=== PATIENT | female | born 1965 | race Caucasian/White ===

== ENCOUNTER 2018-01-16 19:48 | Emergency (ER) | payer MEDICAID ==
[2018-01-16 19:55] VITALS: BP 154/116
[2018-01-16] MEDS ORDERED: ACETAMINOPHEN 325 MG TABLET PO ONE (21:27)
--- NOTE | 2018-01-16 22:03 | RADIOLOGY REPORT (SQ) ---
EXAM DESCRIPTION: HAND LEFT 3 VIEWS COMPLETED DATE/TIME: 01/16/2018 9:47 pm REASON FOR STUDY: fish hook in it COMPARISON: None. EXAM PARAMETERS: NUMBER OF VIEWS: Three views. TECHNIQUE: AP, lateral and oblique radiographic images acquired of the left hand. LIMITATIONS: None. FINDINGS: MINERALIZATION: Normal. BONES: No acute fracture or dislocation. No worrisome bone lesions. JOINTS: No effusions. SOFT TISSUES: There is a fishhook in the soft tissues of the distal aspect of the 2nd digit. This do es not appear to involve the bone. OTHER: No other significant finding. IMPRESSION: Fish hook in the soft tissues as described. TECHNICAL DOCUMENTATION: JOB ID: [id number] [employer] [place]- All Rights Reserved Reading location - IP/workstation name: [email or web address]
[2018-01-16] MEDS ORDERED: DIPH/PERTUSS(ACELL)/TETANUS VAC/PF 0.5 ML SYR (>=10YO) IM ONE (22:24)
[2018-01-16] MEDS ORDERED: OXYCODONE-ACETAMINOPHEN 5-325 MG TABLET PO ONE (22:24)
--- NOTE | 2018-01-16 22:25 | ER Document Report ---
ED Medical Screen (RME) - General Chief Complaint: Foreign Body Stated Complaint: FINGER INJURY Time Seen by Provider: 01/16/18 22:24 Mode of Arrival: Ambulatory Information source: Patient Notes: 52-year-old female presents to ED for it with a fishhook in her left index finger. She states that the stroke was in the laundry and when she reached in her hand into the laundry the patient went into the end of her index finger. She states her tetanus shot is not up-to-date and the pain is severe in her finger. It is a fisherman lower with multiple hooks the other hooks have been taped together. I have greeted and performed a rapid initial assessment of this patient. A comprehensive ED assessment and evaluation of the patient, analysis of test results and completion of medical decision making process will be conducted by an additional ED providers. TRAVEL OUTSIDE OF THE [place] IN LAST 30 DAYS: No - Related Data Allergies/Adverse Reactions: iodine [Iodine] Allergy (Verified 08/15/13 09:39) paroxetine HCl [From Paxil] Allergy (Verified 08/15/13 09:39) Penicillins Allergy (Verified 08/15/13 09:39) Past Medical History - Past Medical History Cardiac Medical History: Reports: Hx Hypertension Neurological Medical History: Reports: Hx Migraine Endocrine Medical History: Reports: Hx Diabetes Mellitus Type 2 Renal/ Medical History: Denies: Hx Peritoneal Dialysis Psychiatric Medical History: Reports: Hx Attention Deficit Hyperactivity Disorder Traumatic Medical History: Reports: Hx Fractures Infectious Medical History: Denies: Hx MRSA Past Surgical History: Reports: Hx Hysterectomy, Hx Orthopedic Surgery - Immunizations Hx Diphtheria, Pertussis, Tetanus Vaccination: Yes Physical Exam - Vital signs Vitals: Temp Pulse Resp BP Pulse Ox 98.3 F 109 H 20 154/116 H 99 01/16/18 19:54 01/16/18 19:54 01/16/18 19:54 01/16/18 19:54 01/16/18 19:54 Course - Vital Signs Vital signs: Temp Pulse Resp BP Pulse Ox 98.3 F 109 H 20 154/116 H 99 01/16/18 19:54 01/16/18 19:54 01/16/18 19:54 01/16/18 19:54 01/16/18 19:54
[2018-01-16] MEDS ORDERED: LIDOCAINE 1% INJ-PF (10 MG/ML) 30 ML SDV INJ ONE (23:15)
[2018-01-16] MEDS ORDERED: BUPIVACAINE HCL 0.5 % INJ/PF 30 ML SDV INJ ONE (23:16)
--- NOTE | 2018-01-16 23:16 | ER Document Report ---
ED Foreign Body - General Chief Complaint: Foreign Body Stated Complaint: FINGER INJURY Time Seen by Provider: 01/16/18 22:24 Mode of Arrival: Ambulatory Notes: Patient is a 52-year-old female that comes emergency department for chief complaint of fishhook embedded in her left index finger. She states that she found the lure caught in her favorite shirt and when she tried to remove it from her shirt she got the hook buried in her finger. She states her son tried to remove the hook for 1 hour before she came to the emergency department. She denies any other complaints. She is not a diabetic. She is not on a blood thinner. She is not up-to-date on her tetanus within 5 years. Fishing lure was recently used in brackish water. TRAVEL OUTSIDE OF THE [place] IN LAST 30 DAYS: No - Related Data Allergies/Adverse Reactions: iodine [Iodine] Allergy (Verified 08/15/13 09:39) paroxetine HCl [From Paxil] Allergy (Verified 08/15/13 09:39) Penicillins Allergy (Verified 08/15/13 09:39) Past Medical History - General Information source: Patient - Social History Smoking Status: Never Smoker Drug Abuse: None Lives with: Family Family History: None, Other Patient has suicidal ideation: No Patient has homicidal ideation: No - Past Medical History Cardiac Medical History: Reports: Hx Hypertension Neurological Medical History: Reports: Hx Migraine Endocrine Medical History: Reports: Hx Diabetes Mellitus Type 2 Renal/ Medical History: Denies: Hx Peritoneal Dialysis Psychiatric Medical History: Reports: Hx Attention Deficit Hyperactivity Disorder Traumatic Medical History: Reports: Hx Fractures Infectious Medical History: Denies: Hx MRSA Past Surgical History: Reports: Hx Hysterectomy, Hx Orthopedic Surgery - Immunizations Hx Diphtheria, Pertussis, Tetanus Vaccination: Yes Hx Pneumococcal Vaccination: 08/20/13 Review of Systems - Review of Systems Constitutional: No symptoms reported EENT: No symptoms reported Cardiovascular: No symptoms reported Respiratory: No symptoms reported Gastrointestinal: No symptoms reported Genitourinary: No symptoms reported Female Genitourinary: No symptoms reported Musculoskeletal: See HPI Skin: See HPI Hematologic/Lymphatic: No symptoms reported Neurological/Psychological: No symptoms reported Physical Exam - Vital signs Vitals: Temp Pulse Resp BP Pulse Ox 98.3 F 109 H 20 154/116 H 99 01/16/18 19:54 01/16/18 19:54 01/16/18 19:54 01/16/18 19:54 01/16/18 19:54 Interpretation: Normal - General General appearance: Anxious In distress: None - HEENT Head: Normocephalic, Atraumatic Eyes: Normal Pupils: PERRL - Respiratory Respiratory status: No respiratory distress Chest status: Nontender Breath sounds: Normal Chest palpation: Normal - Cardiovascular Rhythm: Regular Heart sounds: Normal auscultation Murmur: No - Abdominal Inspection: Normal Distension: No distension Bowel sounds: Normal Tenderness: Nontender Organomegaly: No organomegaly - Back Back: Normal, Nontender - Extremities General upper extremity: Other - There is a 3 prong fish hook with a single prong embedded in the finger pad of the left index finger. There is capillary refill and sensation are both normal. Range of motion of the fingers normal. Normal exam otherwise. General lower extremity: Normal inspection, Nontender, Normal ROM, Normal strength, Normal temperature - Neurological Neuro grossly intact: Yes Cognition: Normal Orientation: AAOx4 Amor Coma Scale Eye Opening: Spontaneous [place] Coma Scale Verbal: Oriented Amor Coma Scale Motor: Obeys Commands Amor Coma Scale Total: 15 Speech: Normal Motor strength normal: LUE, RUE, LLE, RLE Sensory: Normal - Psychological Associated symptoms: Normal affect, Normal mood - Skin Skin Temperature: Warm Skin Moisture: Dry Skin Color: Normal Course - Re-evaluation Re-evalutation: X-ray shows fishhook embedded in soft tissue but no bony involvement. [place] was removed after digital block was performed without any difficulty, wound was dressed after thorough cleaning, patient was placed on doxycycline prophylaxis, tetanus was updated. Discussed wound care and return precautions. Patient states understanding and agreement. - Vital Signs Vital signs: Temp Pulse Resp BP Pulse Ox 98.3 F 109 H 20 154/116 H 99 01/16/18 19:54 01/16/18 19:54 01/16/18 19:54 01/16/18 19:54 01/16/18 19:54 Procedures - Additional Procedures Foreign body removal Notes: Digital block was performed after cleaning the finger using 4 mL's of 1% Xylocaine and 4 mL's of 0.5% bupivacaine. Excellent anesthesia obtained. Because of the buried nature of the hook I was unable to advance it back out, instead a small incision had to be made with a scalpel along the side of the hook to get next to the prong, after which it was easy to grasp the hook with needle drivers and remove the hook in a single tug. Minimal bleeding. No deep wound on exploration. Area cleaned thoroughly and dressed with antibiotic dressing. Discharge - Discharge Clinical Impression: Fish hook injury of finger of left hand Qualifiers: Encounter type: initial encounter Qualified Code(s): S69.92XA - Unspecified injury of left wrist, hand and finger(s), initial encounter Condition: Stable Disposition: HOME, SELF-CARE Additional Instructions: [place] has been removed completely, keep your hand/finger clean with soap and water, apply topical antibiotic over the finger, take the doxycycline antibiotic to prevent infection. Return immediately if this develops redness, swelling, discolored discharge, if you develop fever, or for any other concerns or worsening symptoms. Prescriptions: Doxycycline Hyclate 100 mg PO BID #10 capsule Forms: Return to Work Referrals: ALFONSO HERNANDEZ MD [Primary Care Provider] - Follow up as needed
[2018-01-17] MEDS ORDERED: HYDROCODONE/ACETAMINOPHEN 5-325 MG (6 TAB/ER DISP) PO PRN (00:26)
[2018-01-17] MEDS ORDERED: DOXYCYCLINE HYCLATE 100 MG TABLET PO ONE (00:26)
[2018-01-17] MEDS ORDERED: ONDANSETRON 4 MG TAB.RAPDIS PO ONE (00:27)
== END 2018-01-17 01:22 | disposition home or self-care (01) ==
LOC: ER 19:48
PROC: 0JCK0ZZ Extirpation of Matter from Left Hand Subcutaneous Tissue and Fascia, Open Approach (ICD-10-PCS; principal; 2018-01-16)
DX: S61.241A Puncture wound with foreign body of left index finger without damage to nail, initial encounter (principal); W45.8XXA Other foreign body or object entering through skin, initial encounter; Y93.89 Activity, other specified; I10 Essential (primary) hypertension; E11.9 Type 2 diabetes mellitus without complications
CPT/HCPCS: 99283; 90471; 73130; 90715; 20103; J3490 ×4; S0119

== ENCOUNTER 2018-01-19 09:45 | Emergency (ER) | payer MEDICAID ==
--- NOTE | 2018-01-19 10:03 | ER Document Report ---
ED General - General Chief Complaint: Fall Stated Complaint: FALL/ WRIST AND ANKLE PAIN Time Seen by Provider: 01/19/18 10:01 Mode of Arrival: Ambulatory Information source: Patient Notes: Patient is a 52-year-old female who presents with right wrist pain and left ankle pain and right knee abrasion occurred last night after she fell. She states she tripped and fell over her dog's. She states her right knee does not hurt her but she is concerned she broke her left ankle. She was also seen here yesterday for a fishhook injury and given hydrocodone which she has been taking , last dose was last night. Endorses some associated swelling but denies any bruising or deformity. She denies any head injury or loss of consciousness. TRAVEL OUTSIDE OF THE [place] IN LAST 30 DAYS: No - Related Data Allergies/Adverse Reactions: iodine [Iodine] Allergy (Verified 01/19/18 09:47) paroxetine HCl [From Paxil] Allergy (Verified 01/19/18 09:47) Penicillins Allergy (Verified 01/19/18 09:47) Past Medical History - General Information source: Patient - Social History Smoking Status: Current Every Day Smoker Family History: None, Other - Past Medical History Cardiac Medical History: Reports: Hx Hypertension Neurological Medical History: Reports: Hx Migraine Endocrine Medical History: Reports: Hx Diabetes Mellitus Type 2 Renal/ Medical History: Denies: Hx Peritoneal Dialysis Psychiatric Medical History: Reports: Hx Attention Deficit Hyperactivity Disorder Traumatic Medical History: Reports: Hx Fractures Infectious Medical History: Denies: Hx MRSA Past Surgical History: Reports: Hx Hysterectomy, Hx Orthopedic Surgery - Immunizations Hx Diphtheria, Pertussis, Tetanus Vaccination: Yes Hx Pneumococcal Vaccination: 08/20/13 Review of Systems - Review of Systems Constitutional: No symptoms reported EENT: No symptoms reported Cardiovascular: No symptoms reported Respiratory: No symptoms reported Gastrointestinal: No symptoms reported Genitourinary: No symptoms reported Female Genitourinary: No symptoms reported Musculoskeletal: See HPI Skin: No symptoms reported Hematologic/Lymphatic: No symptoms reported Neurological/Psychological: No symptoms reported Physical Exam - Vital signs Vitals: Temp Pulse Resp BP Pulse Ox 98.4 F 106 H 20 130/87 H 98 01/19/18 09:50 01/19/18 09:50 01/19/18 09:50 01/19/18 09:50 01/19/18 09:50 - Notes Notes: PHYSICAL EXAM: CONSTITUTIONAL: Alert and oriented, well-appearing and in no acute distress. HENT: Normocephalic, atraumatic. Trachea midline. Uvula midline. Moist mucous membranes. EYES: Pupils equal round and reactive to light, EOM intact. Sclera anicteric, conjunctiva are normal. No entrapment. NECK: supple without lymphadenopathy. No midline tenderness or paraspinous muscle spasms. No step-offs or deformities. ROM intact. Negative Kernig's and negative Brudzinski's. HEART: Regular rate and rhythm without murmurs. LUNGS: CTAB and equal. No wheezes, rales or rhonchi. GI: Normactive bowel sounds. Abdomen is soft, nontender, non-distended. No organomegaly. no CVAT. No rebound or guarding. BACK: FROM to passive/active. Strength 5+/5. No vertebral point tenderness, step -offs, or deformities. No other bony tenderness, erythema, swelling or ecchymosis. No paraspinous muscle spasms. EXTREMITIES: bony tenderness along dorsal aspect of ankle without erythema, edema, ecchymosis or deformity. Mild TTP to right wrist without edema, erythema , deformity or ecchymosis. Normal range of motion to right wrist, limited ROM to left ankle, no pitting edema. No cyanosis. Cap Refill <3 seconds. NEURO: Cranial nerves grossly intact. Normal sensory/motor exams. PSYCH: Normal mood, normal affect. SKIN: Warm and dry. Normal turgor. No rashes or lesions noted. Abrasions to right knee. Course - Re-evaluation Re-evalutation: 01/19/18 10:03 Patient seen and examined. No obvious deformities. Neurovascular intact. Abrasions noted to right knee but denies pain at the site. Will obtain xrays. 01/19/18 10:55 Reviewed images and results from radiology - negative right wrist for fracture/ dislocation, left ankle negative for fracture/dislocation. Discussed results with patient. She was given hydrocodone last night following fish hook injury - recommend that she can continue those medications, won't supply any additional pain medication. Will provide CHA wrap and crutches for ankle sprain and wrist splint for wrist sprain. Recommended to follow-up with orthopedics. At this time, will discharge with return precautions and follow-up recommendations. Verbal discharge instructions given at the bedside and opportunity for questions given. Medication warnings reviewed. Patient is in agreement with this plan and has verbalized understanding of return precautions and the need for primary care follow-up in the next 24-72 hours. - Vital Signs Vital signs: Temp Pulse Resp BP Pulse Ox 98.3 F 94 18 117/80 98 01/19/18 11:04 01/19/18 11:04 01/19/18 11:04 01/19/18 11:04 01/19/18 11:04 - Diagnostic Test Radiology reviewed: Image reviewed, Reports reviewed Discharge - Discharge Clinical Impression: Fall, accidental Qualifiers: Encounter type: initial encounter Qualified Code(s): W19.XXXA - Unspecified fall, initial encounter Right wrist sprain Qualifiers: Encounter type: initial encounter Qualified Code(s): S63.501A - Unspecified sprain of right wrist, initial encounter Left ankle sprain Qualifiers: Encounter type: initial encounter Involved ligament of ankle: other ligament Qualified Code(s): S93.492A - Sprain of other ligament of left ankle, initial encounter Condition: Stable Disposition: HOME, SELF-CARE Instructions: Ice Packs ([facility]), Sprained Ankle ([facility]), Wrist Sprain ([facility]) Prescriptions: Naproxen [Naprosyn 250 mg Tablet] 250 mg PO DAILY PRN #14 tablet PRN Reason: Forms: Elevated Blood Pressure, Return to School, Return to Work
--- NOTE | 2018-01-19 10:45 | RADIOLOGY REPORT (SQ) ---
EXAM DESCRIPTION: ANKLE LEFT COMPLETE COMPLETED DATE/TIME: 01/19/2018 10:26 am REASON FOR STUDY: s/p fall COMPARISON: None. NUMBER OF VIEWS: Three views. TECHNIQUE: AP, lateral, and oblique radiographic images acquired of the left ankle. LIMITATIONS: None. FINDINGS: MINERALIZATION: Normal. BONES: No acute fracture or dislocation. No worrisome bone lesions. JOINTS: No effusions. SOFT TISSUES: No soft tissue swelling. No foreign body. OTHER: No other significant finding. IMPRESSION: NEGATIVE STUDY OF THE LEFT ANKLE. NO RADIOGRAPHIC EVIDENCE OF ACUTE INJURY. TECHNICAL DOCUMENTATION: JOB ID: [id number] [employer]- All Rights Reserved Reading location - IP/workstation name: [email or web address]
--- NOTE | 2018-01-19 10:52 | RADIOLOGY REPORT (SQ) ---
EXAM DESCRIPTION: WRIST RIGHT 3 VIEWS COMPLETED DATE/TIME: 01/19/2018 10:26 am REASON FOR STUDY: s/p fall COMPARISON: None. NUMBER OF VIEWS: Three views. TECHNIQUE: AP, lateral, and oblique radiographic images acquired of the right wrist. LIMITATIONS: None. FINDINGS: MINERALIZATION: Normal. BONES: No acute fracture or dislocation. No worrisome bone lesions. Normal alignment. SOFT TISSUES: No soft tissue swelling. No foreign body. OTHER: No other significant finding. IMPRESSION: NEGATIVE STUDY OF THE RIGHT WRIST. NO RADIOGRAPHIC EVIDENCE OF ACUTE INJURY. TECHNICAL DOCUMENTATION: JOB ID: [id number] [employer]- All Rights Reserved Reading location - IP/workstation name: [email or web address]
[2018-01-19 11:21] VITALS: BP 117/80
== END 2018-01-19 11:18 | disposition home or self-care (01) ==
LOC: ER 09:45
DX: S63.501A Unspecified sprain of right wrist, initial encounter (principal); S93.402A Sprain of unspecified ligament of left ankle, initial encounter; S80.211A Abrasion, right knee, initial encounter; W01.0XXA Fall on same level from slipping, tripping and stumbling without subsequent striking against object, initial encounter; I10 Essential (primary) hypertension; E11.9 Type 2 diabetes mellitus without complications; F17.200 Nicotine dependence, unspecified, uncomplicated; Z88.8 Allergy status to other drugs, medicaments and biological substances; Z88.0 Allergy status to penicillin
CPT/HCPCS: 99283; 73610; 73110; L3908

== ENCOUNTER 2018-05-10 04:31 | Emergency (ER) | payer MEDICAID ==
[2018-05-10] MEDS ORDERED: KETOROLAC TROMETHAMINE INJ/PF 30 MG/1 ML SDV IV ONE (05:05)
[2018-05-10] MEDS ORDERED: ONDANSETRON HCL INJ/PF 4 MG/2 ML SDV IV ONE (05:05)
[2018-05-10 05:47] LABS: ABSOLUTE BASOPHILS # (AUTO) 0.1 10^3/uL (0.0-0.2); ABSOLUTE EOSINOPHILS # (AUTO) 0.2 10^3/uL (0.0-0.6); ABSOLUTE LYMPHOCYTES (AUTO) 2.7 10^3/uL (0.5-4.7); ABSOLUTE MONOCYTES (AUTO) 0.7 10^3/uL (0.1-1.4); ABSOLUTE NEUT (AUTO) 6.5 10^3/uL (1.7-8.2); BASOPHILS % (AUTO) 0.8 % (0-2); HEMATOCRIT 40.7 % (36.0-47.0); HEMOGLOBIN 13.9 g/dL (12.0-15.5); LYMPHOCYTES % (AUTO) 26.3 % (13-45); MEAN CORPUSCULAR HGB CONC 34.3 g/dL (32.0-36.0); MEAN CORPUSCULAR VOLUME 90 fl (80-97); MONOCYTES % (AUTO) 7.1 % (3-13); PLATELET COUNT 369 10^3/uL (150-450); RED CELL DISTRIBUTION WIDTH 13.3 % (11.5-14.0); SEGMENTED NEUTROPHILS % (AUTO) 63.8 % (42-78); TOTAL CELLS COUNTED % (AUTO) 100 %; WHITE BLOOD COUNT 10.2 10^3/uL (4.0-10.5)
[2018-05-10 06:02] LABS: ALANINE AMINOTRANSFERASE 26 U/L (9-52); ALBUMIN 3.7 g/dL (3.5-5.0); ALKALINE PHOSPHATASE 74 U/L (38-126); ANION GAP 12 (5-19); ASPARTATE AMINO TRANSFERASE 19 U/L (14-36); BILIRUBIN,DIRECT 0.2 mg/dL (0.0-0.4); BILIRUBIN,TOTAL 0.3 mg/dL (0.2-1.3); BLOOD UREA NITROGEN 16 mg/dL (7-20); CALCIUM 9.1 mg/dL (8.4-10.2); CARBON DIOXIDE 23 mmol/L (22-30); CHLORIDE 105 mmol/L (98-107); GLUCOSE 107 mg/dL (75-110); LIPASE 122.1 U/L (23-300); POTASSIUM 4.3 mmol/L (3.6-5.0); SODIUM 140.1 mmol/L (137-145); TOTAL PROTEIN 6.5 g/dL (6.3-8.2)
[2018-05-10] MEDS ORDERED: NORMAL SALINE 1000 ML 1,000 ML IV ONE (06:23)
[2018-05-10] MEDS ORDERED: FENTANYL CITRATE INJ/PF 100 MCG/2 ML AMPUL IV ONE (06:24)
[2018-05-10] MEDS ORDERED: METOCLOPRAMIDE HCL INJ/PF 10 MG/2 ML SDV IV ONE (06:24)
--- NOTE | 2018-05-10 06:24 | ER Document Report ---
ED GI/ <GREGG XIAO - Last Filed: 05/10/18 08:36> - General Mode of Arrival: Ambulatory Information source: Patient TRAVEL OUTSIDE OF THE [place] IN LAST 30 DAYS: No <BERLIN PAGAN - Last Filed: 05/10/18 14:57> - General Chief Complaint: Flank Pain Stated Complaint: FLANK PAIN Time Seen by Provider: 05/10/18 06:10 Notes: 52-year-old female presenting to the emergency department today with complaints of left-sided abdominal pain. Patient states it woke her up out of her sleep this morning. Patient has a history of kidney stones. Patient mentions that she had a fall at 10:00 in the morning yesterday and she is unsure if it is related to her pain now. Patient states she has nausea but denies vomiting. ( BERLIN PAGAN) - Related Data Allergies/Adverse Reactions: iodine [Iodine] Allergy (Verified 05/10/18 08:11) paroxetine HCl [From Paxil] Allergy (Verified 05/10/18 08:11) Penicillins Allergy (Verified 05/10/18 08:11) Past Medical History - General Information source: Patient - Social History Smoking Status: Never Smoker Cigarette use (# per day): No Frequency of alcohol use: None Drug Abuse: None Lives with: Family Family History: Reviewed & Not Pertinent, Other Patient has suicidal ideation: No Patient has homicidal ideation: No - Past Medical History Cardiac Medical History: Reports: Hx Hypertension Neurological Medical History: Reports: Hx Migraine Endocrine Medical History: Reports: Hx Diabetes Mellitus Type 2 Psychiatric Medical History: Reports: Hx Attention Deficit Hyperactivity Disorder Traumatic Medical History: Reports: Hx Fractures Past Surgical History: Reports: Hx Hysterectomy, Hx Orthopedic Surgery - Immunizations Hx Diphtheria, Pertussis, Tetanus Vaccination: Yes Hx Pneumococcal Vaccination: 08/20/13 <BERLIN PAGAN - Last Filed: 05/10/18 14:57> Review of Systems - Review of Systems Constitutional: No symptoms reported EENT: No symptoms reported Cardiovascular: No symptoms reported Respiratory: No symptoms reported Gastrointestinal: See HPI, Abdominal pain, Nausea Genitourinary: No symptoms reported Female Genitourinary: No symptoms reported Musculoskeletal: No symptoms reported Skin: No symptoms reported Hematologic/Lymphatic: No symptoms reported Neurological/Psychological: No symptoms reported -: Yes All other systems reviewed and negative <BERLIN PAGAN - Last Filed: 05/10/18 14:57> Physical Exam <GREGG XIAO - Last Filed: 05/10/18 08:36> <BERLIN PAGAN - Last Filed: 05/10/18 14:57> - Vital signs Vitals: Temp Pulse Resp BP Pulse Ox 97.4 F 80 22 H 127/96 H 100 05/10/18 04:42 05/10/18 04:42 05/10/18 04:42 05/10/18 04:42 05/10/18 04:42 - Notes Notes: Physical Exam: General: Alert, appears uncomfortable. HEENT: Normocephalic. Atraumatic. PERRL. Extraocular movements intact. Oropharynx clear. Neck: Supple. Non-tender. Respiratory: No respiratory distress. Clear and equal breath sounds bilaterally. Cardiovascular: Regular rate and rhythm. Abdominal: Obese. Left lower quadrant tenderness with palpation. No distension. Normal Bowel Sounds. Back: Non-tender, no CVA tenderness with percussion. No deformity or step off. Extremities: Moves all four extremities. Upper extremities: Normal inspection. Normal ROM. Lower extremities: Normal inspection. No edema. Normal ROM. Neurological: Normal cognition. AAOx4. Normal speech. Psychological: Normal affect. Normal Mood. Skin: Warm. Dry. Normal color. (BERLIN PAGAN) Course - Laboratory Result Diagrams: 05/10/18 05:20 05/10/18 05:20 - Diagnostic Test Radiology reviewed: Image reviewed, Reports reviewed - 6 mm stone in the mid left ureter with moderate hydroureter and hydronephrosis <GREGG XIAO - Last Filed: 05/10/18 08:36> - Laboratory Result Diagrams: 05/10/18 05:20 05/10/18 05:20 <BERLIN PAGAN - Last Filed: 05/10/18 14:57> - Vital Signs Vital signs: Temp Pulse Resp BP Pulse Ox 97.5 F 93 20 119/69 95 05/10/18 08:50 05/10/18 08:50 05/10/18 08:50 05/10/18 08:50 05/10/18 08:50 - Laboratory Laboratory results interpreted by me: 05/10/18 07:55 Urine Blood MODERATE H Discharge <GREGG XIAO - Last Filed: 05/10/18 08:36> <BERLIN PAGAN - Last Filed: 05/10/18 14:57> - Discharge Clinical Impression: Kidney stone on left side Condition: Stable Disposition: HOME, SELF-CARE Additional Instructions: Kidney Stone: You are passing a kidney stone. These stones are usually due to increased calcium or uric acid concentrations in your urine. Stones within the kidney itself are not painful. The pain occurs as the stone leaves the kidney to pass down the long tube, called the ureter, leading to the bladder. If the stone is small, it will usually pass by itself. Most patients can pass the stone at home. You will usually receive medications for pain, nausea or vomiting, and sometimes a medication to assist in passing the kidney stone. However, if the pain is very severe or if vomiting prevents you from taking oral pain medications, you may need to return for further treatment. Drink three or four quarts of fluids per day. You will be given pain medication (if needed) and urine strainers. Strain all your urine to see if the stone passes. If your doctor has asked you to bring the stone in for analysis, return with the stone once it has passed. Return if pain or vomiting become severe, if you develop a high fever, if you are unable to pass your urine, or if other unusual symptoms occur. Take medications as prescribed. Drink plenty of fluids. Follow-up with a local urologist. Call today for an appointment. RETURN TO THE EMERGENCY ROOM IF ANY NEW OR WORSENING SYMPTOMS. Prescriptions: Hydromorphone HCl [Dilaudid 2 mg Tablet] 2 mg PO ASDIR PRN #20 tablet PRN Reason: For Pain Indomethacin [Indocin 25 mg Capsule] 25 mg PO Q8 #15 capsule Tamsulosin HCl [Flomax 0.4 mg Cap.sr] 0.4 mg PO DAILY #7 cap.sr.24h Referrals: [facility] [Provider Group] - Follow up in 3-5 days [facility] [Provider Group] - Follow up in 3-5 days Scribe Attestation: 05/10/18 08:24 I personally performed the services described in the documentation, reviewed and edited the documentation which was dictated to the scribe in my presence, and it accurately records my words and actions. (GREGG XIAO) Scribe Documentation - Scribe Written by Justin:: Justin Woods, 05/10/2018, 0728 acting as scribe for :: Param <BERLIN PAGAN - Last Filed: 05/10/18 14:57>
[2018-05-10] MEDS ORDERED: HYDROMORPHONE HCL INJ/PF 2 MG/ML AMPULE IV ONE (08:08)
--- NOTE | 2018-05-10 08:09 | RADIOLOGY REPORT (SQ) ---
EXAM DESCRIPTION: CT LTD RENAL STONE PROTOCOL ON COMPLETED DATE/TIME: 05/10/2018 7:47 am REASON FOR STUDY: L flank pain LLQ abdominal pain COMPARISON: CT abdomen pelvis 08/15/2013 TECHNIQUE: CT scan of the abdomen and pelvis performed without intravenous or oral contrast. Images reviewed with lung, soft tissue, and bone windows. Reconstructed coronal and sagittal MPR images revi ewed. All images stored on PACS. All CT scanners at this facility use dose modulation, iterative reconstruction, and/or weight based d osing when appropriate to reduce radiation dose to as low as reasonably achievable (ALARA). [facility]: Dose Right [facility]: CareDose [facility]: Dose Right [facility]: Teradose 4D [facility]: Smart Technologies RADIATION DOSE: CT Rad equipment meets quality standard of care and radiation dose reduction techniq ues were employed. CTDIvol: 10.9 mGy. DLP: 573 mGy-cm.mGy. LIMITATIONS: None. FINDINGS: A 6 mm stone is present in the left mid 3rd ureter at the level of the left L4 transverse process. Stone is 700 Hounsfield units and causes moderate left hydronephrosis and upper hydroureter . Elsewhere in the left kidney, a 2 mm lower pole intrarenal nonobstructive stone is present. No left renal cysts or masses. LOWER CHEST: Small hiatal hernia. NON-CONTRASTED LIVER, SPLEEN, ADRENALS: Non contrasted liver, spleen, and left adrenal gland are unre markable. A fat density 1.8 cm right adrenal adenoma is present, benign. PANCREAS: No masses. No peripancreatic inflammatory changes. GALLBLADDER: No identified stones by CT criteria. No inflammatory changes to suggest cholecystitis. RIGHT KIDNEY AND URETER: No suspicious masses. Assessment limited by lack of IV contrast. No signif icant calcifications. No hydronephrosis or hydroureter. LEFT KIDNEY AND URETER: As above AORTA AND RETROPERITONEUM: No aneurysm. No retroperitoneal masses or adenopathy. BOWEL AND PERITONEAL CAVITY: No obvious masses or inflammatory changes. No free fluid. APPENDIX: Surgically absent PELVIS, BLADDER, AND ABDOMINAL WALL:No abnormal masses. No free fluid. Bladder normal. Post hysterec fariha BONES: No significant findings. OTHER: No other significant finding. IMPRESSION: 6 mm stone in the left mid 3rd ureter at the level of the left L4 transverse process cau sing moderate left hydronephrosis and upper hydroureter COMMENT: Quality ID # [id number]: Final reports with documentation of one or more dose reduction techniques (e.g., Automated exposure control, adjustment of the mA and/or kV according to patient size, use of iterative reconstruction technique) TECHNICAL DOCUMENTATION: JOB ID: [id number] [employer]- All Rights Reserved Reading location - IP/workstation name: [email or web address] BY [facility]
[2018-05-10 08:18] LABS: APPEARANCE,URINE CLEAR; BILIRUBIN,URINE NEGATIVE (NEGATIVE); COLOR,URINE YELLOW; GLUCOSE, URINE NEGATIVE (NEGATIVE); KETONES,URINE NEGATIVE (NEGATIVE); LEUKOCYTE ESTERASE,URINE NEGATIVE (NEGATIVE); NITRITE,URINE NEGATIVE (NEGATIVE); PROTEIN,URINE NEGATIVE (NEGATIVE); URINE SPECIFIC GRAVITY 1.018; UROBILINOGEN,URINE NEGATIVE mg/dL (<2.0)
[2018-05-10 08:56] VITALS: BP 119/69
== END 2018-05-10 09:30 | disposition home or self-care (01) ==
LOC: ER 04:31
DX: N20.0 Calculus of kidney (principal); R10.9 Unspecified abdominal pain; W19.XXXA Unspecified fall, initial encounter; E11.9 Type 2 diabetes mellitus without complications; I10 Essential (primary) hypertension; Z87.442 Personal history of urinary calculi; Z90.710 Acquired absence of both cervix and uterus
CPT/HCPCS: 99284; 96361; 96374; 96375; 36415; 83690; 85025; 80053; 81001; 76380; J3010; J1885; J2765; J1170; J7030

== ENCOUNTER → 2018-05-31 | Outpatient (CLI) | payer MEDICAID ==
--- NOTE | 2018-05-31 13:20 | RADIOLOGY REPORT (SQ) ---
EXAM DESCRIPTION: UGI SERIES COMPLETED DATE/TIME: 05/31/2018 9:28 am REASON FOR STUDY: R13.10 DYSPHAGIA, UNSPECIFIED R13.10 DYSPHAGIA, UNSPECIFIED Z12.31 ENCNTR SCREEN MAMMOGRAM FOR MALIGNANT NEOPLASM OF FOX COMPARISON: None. TECHNIQUE: Under fluoroscopic guidance, patient ingested effervescent granules followed by thick and thin barium. Fluoroscopic spot images and routine radiographic images acquired and stored on PACS. 12 MM BARIUM TABLET GIVEN: Yes. No significant delay in passage. LIMITATIONS: None. FLUOROSCOPY TIME: FLUORO TIME: 2 minutes 25 seconds 20 digital series of images saved to PACS. FINDINGS: NEUROMUSCULAR COORDINATION OF SWALLOW: Normal. No aspiration. ESOPHAGEAL MOTILITY: Normal peristalsis. No esophageal spasm. ESOPHAGEAL MUCOSA: Normal mucosa without masses or ulceration. GASTRO-ESOPHAGEAL JUNCTION: Tiny hiatal hernia with mild gastroesophageal reflux. No distal esophage al stricture. The distal esophageal mucosal abnormalities. STOMACH: Normal without masses or ulcerations. GASTRIC OUTLET: No delay in emptying. Normal pylorus. DUODENAL BULB: Normal distention. No spasm or ulceration. DUODENUM: Mucosa normal. No extrinsic masses or malrotation. PROXIMAL SMALL BOWEL: Mucosa normal. No extrinsic masses or malrotation. NON-GI TRACT STRUCTURES: No significant finding. OTHER: No other significant finding. IMPRESSION: Tiny hiatal hernia with mild gastroesophageal reflux. Otherwise unremarkable upper GI s tudy. COMMENT: Quality ID 145: Final reports for procedures using fluoroscopy that document radiation exp osure indices, or exposure time and number of fluorographic images (if radiation exposure indices are not available) TECHNICAL DOCUMENTATION: JOB ID: [id number] [employer]- All Rights Reserved Reading location - IP/workstation name: [facility]
--- NOTE | 2018-05-31 16:53 | WOMENS IMAGING REPORT ---
EXAM DESCRIPTION: BILAT SCREENING MAMMO W/CAD COMPLETED DATE/TIME: 05/31/2018 10:45 am REASON FOR STUDY: BILATERAL SCREENING MAMMO/Z12.31 R13.10 DYSPHAGIA, UNSPECIFIED Z12.31 ENCNTR SCR EEN MAMMOGRAM FOR MALIGNANT NEOPLASM OF FOX COMPARISON: 2011 TECHNIQUE: Standard craniocaudal and mediolateral oblique views of each breast recorded using digita l acquisition. LIMITATIONS: None. FINDINGS: No masses, calcifications or architectural distortion. No areas of suspicion. Read with the assistance of CAD. .[facility] - R2 Cenova Version 1.3 .[facility] - R2 Cenova Version 1.3 .[facility] - R2 Cenova Version 2.4 .[facility] - R2 Cenova Version 2.4 .[facility] - R2 Layout Artist Version 9.2 IMPRESSION: NORMAL MAMMOGRAM. BIRADS 1. BREAST DENSITY: b. There are scattered areas of fibroglandular density. BIRAD: 1 NEGATIVE RECOMMENDATION: ROUTINE SCREENING COMMENT: The patient has been notified of the results by letter per MQSA requirements. Additional no tification policies are in place for contacting patient with suspicious or incomplete findings. Quality ID #[id number]: The [employer] recommends an annual screening mammogram for women aged 40 years or over. This facility utilizes a reminder system to ensure that all patients receive reminder letters, and/or direct phone calls for appointments. This includes reminders for routine scr eening mammograms, diagnostic mammograms, or other Breast Imaging Interventions when appropriate. Th is patient will be placed in the appropriate reminder system. The [employer] (ACR) has developed recommendations for screening MRI of the breast s in certain patient populations, to be used in conjunction with mammography. Breast MRI surveillanc e may be appropriate for women with more than 20% lifetime risk of developing breast cancer as deter mined by genetic testing, significant family history of the disease, or history of mantle radiation f or Hodgkins Disease. ACR Practice Guidelines 2008. TECHNICAL DOCUMENTATION: FINDING NUMBER: (1) ASSESSMENT: (1) JOB ID: [id number] [employer]- All Rights Reserved Reading location - IP/workstation name: [email or web address]
== END ==
LOC: RAD 08:23
PROVIDERS: ATTEND Internal Medicine
DX: Z12.31 Encounter for screening mammogram for malignant neoplasm of breast (principal); K21.9 Gastro-esophageal reflux disease without esophagitis; K44.9 Diaphragmatic hernia without obstruction or gangrene; R13.10 Dysphagia, unspecified
CPT/HCPCS: 74247; 77067

== ENCOUNTER 2018-06-28 20:33 | Observation (INO) | payer MEDICAID ==
[2018-06-28] MEDS ORDERED: ASPIRIN 81 MG TABLET, CHEWABLE PO ONE (20:56)
--- NOTE | 2018-06-28 20:58 | ER Document Report ---
ED General - General Stated Complaint: BREATHING PROBLEM Time Seen by Provider: 06/28/18 20:40 Mode of Arrival: Ambulatory Information source: Patient Notes: This is a 52-year-old female with a history of hypertension who presents to the emergency room via EMS after an episode of chest pain, shortness of breath and generalized weakness. She was near syncopal at the time and EMS reports that her blood pressure was 60/40 at the scene. Her heart rate was 95 at the time and her Accu-Chek was 161. She was given 800 cc of normal saline prior to arrival. Patient states she is feeling better now. Her blood pressure on arrival is 110/74 with a pulse of 96, O2 sat of 96% on room air and respiratory rate of 13 TRAVEL OUTSIDE OF THE [place] IN LAST 30 DAYS: No - HPI Onset: Just prior to arrival Onset/Duration: Sudden Quality of pain: Dull Severity: Severe Pain Level: 5 Associated symptoms: Chest pain, Shortness of breath. denies: Fever Exacerbated by: Denies Relieved by: Denies Similar symptoms previously: No Recently seen / treated by doctor: No - Related Data Allergies/Adverse Reactions: paroxetine HCl [From Paxil] Allergy (Verified 06/28/18 21:24) Penicillins Allergy (Verified 06/28/18 21:24) shellfish derived Allergy (Verified 06/28/18 22:48) Past Medical History - General Information source: Patient - Social History Smoking Status: Never Smoker Cigarette use (# per day): No Chew tobacco use (# tins/day): No Frequency of alcohol use: None Drug Abuse: None Lives with: Family Family History: Reviewed & Not Pertinent, Other Patient has suicidal ideation: No Patient has homicidal ideation: No - Past Medical History Cardiac Medical History: Reports: Hx Hypertension Neurological Medical History: Reports: Hx Migraine Endocrine Medical History: Reports: Hx Diabetes Mellitus Type 2 Renal/ Medical History: Denies: Hx Peritoneal Dialysis Psychiatric Medical History: Reports: Hx Attention Deficit Hyperactivity Disorder Traumatic Medical History: Reports: Hx Fractures Infectious Medical History: Denies: Hx MRSA Past Surgical History: Reports: Hx Hysterectomy, Hx Orthopedic Surgery - Immunizations Hx Diphtheria, Pertussis, Tetanus Vaccination: Yes Hx Pneumococcal Vaccination: 08/20/13 Review of Systems - Review of Systems Constitutional: denies: Chills, Fever EENT: No symptoms reported Cardiovascular: Chest pain, Dizziness, Lightheaded Respiratory: Short of breath Gastrointestinal: No symptoms reported Genitourinary: No symptoms reported Female Genitourinary: No symptoms reported Musculoskeletal: No symptoms reported Skin: No symptoms reported Hematologic/Lymphatic: No symptoms reported Neurological/Psychological: No symptoms reported Physical Exam - Vital signs Vitals: Pulse Ox 100 06/28/18 20:46 Notes: Physical exam: GENERAL: 32-year-old female, alert oriented 3, no acute distress HEAD: Atraumatic, normocephalic. EYES: Pupils equal round and reactive to light, extraocular movements intact, sclera anicteric, conjunctiva are normal. ENT: TMs normal, nares patent, oropharynx clear without exudates. Moist mucous membranes. NECK: Normal range of motion, supple without obvious mass or JVD. LUNGS: Breath sounds clear to auscultation bilaterally and equal. No wheezes rales or rhonchi. HEART: Regular rate and rhythm without murmurs, rubs or gallops. ABDOMEN: Soft, normoactive bowel sounds. No tenderness to palpation. No guarding, no rebound. No masses appreciated. EXTREMITIES: Normal range of motion, no pitting or edema. No clubbing or cyanosis. NEUROLOGICAL: Cranial nerves II through XII grossly intact. Normal speech, moving all extremities. PSYCH: Normal mood, normal affect. SKIN: Warm, Dry, normal turgor, no rashes or lesions noted. Course - Vital Signs Vital signs: Temp Pulse Resp BP Pulse Ox 17 115/75 95 06/28/18 22:01 06/28/18 22:01 06/28/18 22:01 - Laboratory Result Diagrams: 06/28/18 21:05 06/28/18 21:05 Laboratory results interpreted by me: 06/28/18 21:05 Sodium 135.1 L BUN 23 H Glucose 117 H Calcium 8.3 L Total Protein 5.8 L Albumin 3.2 L - Diagnostic Test Radiology reviewed: Image reviewed, Reports reviewed - CTA of the chest shows no evidence of pulmonary emboli - EKG Interpretation by Me Rate: Normal Rhythm: NSR - EKG shows normal sinus rhythm with a ventricular rate of 95, no acute ST-T wave changes Discharge - Discharge Clinical Impression: Chest pain, Near syncope Condition: Stable Disposition: ADMITTED OBSERVATION Admitting Provider: Hospitalist Unit Admitted: Telemetry - Dr Barber Referrals: ALFONSO HERNANDEZ MD [Primary Care Provider] - Follow up as needed
[2018-06-28 21:24] LABS: ABSOLUTE LYMPHOCYTES (AUTO) 1.2 10^3/uL (0.5-4.7); ABSOLUTE MONOCYTES (AUTO) 0.6 10^3/uL (0.1-1.4); ABSOLUTE NEUT (AUTO) 3.4 10^3/uL (1.7-8.2); BASOPHILS % (AUTO) 0.8 % (0-2); EOSINOPHILS % (AUTO) 0.6 % (0-6); HEMATOCRIT 42.8 % (36.0-47.0); HEMOGLOBIN 14.4 g/dL (12.0-15.5); LYMPHOCYTES % (AUTO) 22.8 % (13-45); MEAN CORPUSCULAR HEMOGLOBIN 30.3 pg (27.0-33.4); MEAN CORPUSCULAR HGB CONC 33.7 g/dL (32.0-36.0); MEAN CORPUSCULAR VOLUME 90 fl (80-97); MONOCYTES % (AUTO) 12.2 % (3-13); PLATELET COUNT 305 10^3/uL (150-450); RED BLOOD COUNT 4.76 10^6/uL (3.72-5.28); RED CELL DISTRIBUTION WIDTH 13.2 % (11.5-14.0); SEGMENTED NEUTROPHILS % (AUTO) 63.6 % (42-78); TOTAL CELLS COUNTED % (AUTO) 100 %; WHITE BLOOD COUNT 5.3 10^3/uL (4.0-10.5)
[2018-06-28 21:37] LABS: ALANINE AMINOTRANSFERASE 32 U/L (9-52); ALBUMIN 3.2 g/dL (3.5-5.0); ALKALINE PHOSPHATASE 68 U/L (38-126); ANION GAP 8 (5-19); ASPARTATE AMINO TRANSFERASE 19 U/L (14-36); BILIRUBIN,DIRECT 0.2 mg/dL (0.0-0.4); BILIRUBIN,TOTAL 0.2 mg/dL (0.2-1.3); BLOOD UREA NITROGEN 23 mg/dL (7-20); CALCIUM 8.3 mg/dL (8.4-10.2); CARBON DIOXIDE 24 mmol/L (22-30); CHLORIDE 103 mmol/L (98-107); CREATINE KINASE 95 U/L (30-135); GLUCOSE 117 mg/dL (75-110); POTASSIUM 4.1 mmol/L (3.6-5.0); SODIUM 135.1 mmol/L (137-145); TOTAL PROTEIN 5.8 g/dL (6.3-8.2)
[2018-06-28 21:49] LABS: CREATINE KINASE MB 0.46 ng/mL (<4.55)
[2018-06-28 21:50] LABS: TROPONIN I < 0.012 ng/mL
[2018-06-28] MEDS ORDERED: FAMOTIDINE INJ/PF 20 MG/2 ML SDV IV ONE (22:20)
[2018-06-28] MEDS ORDERED: METHYLPREDNISOLONE INJ 125 MG/2 ML SDV IV ONE (22:20)
[2018-06-28] MEDS ORDERED: DIPHENHYDRAMINE HCL 50 MG/ML VIAL IV ONE (22:20)
--- NOTE | 2018-06-28 22:38 | RADIOLOGY REPORT (SQ) ---
EXAM DESCRIPTION: XR CHEST 1 VIEW COMPLETED DATE/TME: 06/28/2018 20:56 CLINICAL HISTORY: 52 years Female, cp COMPARISON: None. NUMBER OF VIEWS/TECHNIQUE: 1/AP FINDINGS: Adequate lung volume, clear parenchyma, normal cardiac silhouette, and intact bony thorax. IMPRESSION: No acute cardiopulmonary findings.
--- NOTE | 2018-06-28 23:25 | RADIOLOGY REPORT (SQ) ---
PROCEDURE: CT OF THE CHEST INTRAVENOUS CONTRAST HISTORY: cp Indication: Same as above Comparison: None Technique: CT of the chest was done on 06/28/2018 at 11:[address] of the chest was done with intravenous contrast followed by CT angiography of the pulmonary arteries. Coronal, Sagittal and 3D volumetric MIP reconstructions were generated from the acquired data. The patient was injected with radiographic contrast intravenously, without any documented immediate adverse reactions. This exam was performed according to our departmental dose-optimization program, which includes automated exposure control, adjustment of the mA and/or KV according to the patient's size and/or use of iterative reconstruction technique. FINDINGS: There is no visualization of filling defects in the main pulmonary trunk, main right and left pulmonary arteries or their lower order branches to suggest pulmonary embolism. The bilateral main pulmonary arteries are normal in caliber. There is no evidence of interventricular septal deviation or filling defects in the cardiac chambers. There are no discrete airspace infiltrates, pneumothoraces or pleural effusions. The trachea, bilateral mainstem bronchi and the bilateral main segmental bronchi are patent without any intraluminal mass lesions. There is no gross evidence of clinically significant thoracic aortic aneurysm or thoracic aortic dissection. There is no clinically significant pericardial effusion. There are no pathologically enlarged lymph nodes in the mediastinum, bilateral hilar, bilateral supraclavicular or the bilateral axillary regions. The thoracic bony rib cage appears grossly unremarkable. The visualized thoracic spine is unremarkable. There is a 2 cm fat-containing benign right adrenal adenoma and a 1 cm nodule in the left adrenal, indeterminate on the current study. IMPRESSION: There is no pulmonary embolism, airspace infiltrates or pleural effusions There is a 2 cm fat-containing benign right adrenal adenoma and a 1 cm nodule in the left adrenal, indeterminate on the current study and can be further assessed with a dedicated CT of the adrenal glands
[2018-06-29] MEDS ORDERED: GLUCAGON,HUMAN RECOMB 1 MG INJ SUBCUT PRN (03:04)
[2018-06-29] MEDS ORDERED: DEXTROSE 40% GEL 15 GM TUBE PO PRN ×2 (03:04)
[2018-06-29] MEDS ORDERED: DEXTROSE 50%-WATER 25 GM/50 ML DISP.SYRIN IV PRN ×2 (03:04)
[2018-06-29] MEDS ORDERED: DIAZEPAM 2 MG TABLET PO PRN ×2 (03:30→11:36)
--- NOTE | 2018-06-29 03:33 | PDOC H&P ---
History of Present Illness Admission Date/PCP: 06/29/18 02:00 ALFONSO HERNANDEZ MD Patient complains of: Near Syncope History of Present Illness: [place] is a 52 year old female presents to the emergency department via EMS. Patient tells me that she is not feeling well for the last 2 days complains of bad headaches, generalized weakness, shortness of breath during physical activity reason for which she has been laying down on the couch most of the day. They she went to donate plasma, at 4 PM started with chest tightness, nonradiating, 10/10 intensity resolve spontaneously. Around 7 PM she went to [facility] and started feeling dizzy, weakness on both legs, she could not talk, she had to sit down, she was diaphoretic, her arms were sweating , she did not fall to the floor and did not hit her head. Also complains of bilateral upper extremity tingling shortness of breath. When EMS arrived her blood pressure was 60/40, it improves in the ED with IV fluids, currently 115/ 70. She goes to the gym, last 2 days ago and did not have any symptomatology before. Denies having any stress test in the past. She follow with photographic spotter about 5 years ago for hypertension. Tells me that she has been drinking fluids at home. EKG unremarkable. Troponins 1 negative. Past Medical History Cardiac Medical History: Reports: Hypertension Neurological Medical History: Reports: Migraine Endocrine Medical History: Reports: Hypothyroidism Endocrine History Note: Pituitary gland tumor Psychiatric Medical History: Reports: Attention Deficit Hyperactivity Disorder Infectious Medical History: Denies: Methicillin-Resistant Staph Aureus Past Surgical History Past Surgical History: Reports: Appendectomy, Hysterectomy, Orthopedic Surgery - Right tibial sun Social History Lives with: Family - Son Smoking Status: Never Smoker Frequency of Alcohol Use: Occasional Amount of Alcoholic Beverages Per Day: 1 glass of wine with food Hx Recreational Drug Use: No Hx Prescription Drug Abuse: No Past Social History Note: Lives with her son who is 17 years old Family History Family History: Reviewed & Not Pertinent, Other Family History: Mother's side with a history of hypertension and [place]. Father with history of hypertension Parental Family History Reviewed: Yes - As above Children Family History Reviewed: NA Sibling(s) Family History Reviewed.: NA Medication/Allergy Home Medications: Dextroamphetamine/Amphetamine [Adderall Xr 25 mg Capsule] 1 tab PO DAILY Diazepam [Diazepam] 1 tab PO PRN PRN 06/28/18 Eszopiclone [Lunesta] 1 mg PO QHS 06/28/18 Levothyroxine Sodium [Synthroid 0.1 mg Tablet] 1 tab PO DAILY 06/28/18 Lisinopril 20 mg PO DAILY 06/28/18 Allergies/Adverse Reactions: paroxetine HCl [From Paxil] Allergy (Verified 06/28/18 21:24) Penicillins Allergy (Verified 06/28/18 21:24) shellfish derived Allergy (Verified 06/28/18 22:48) Review of Systems Review of Systems: As outlined in the HPI, all others negative Physical Exam Vital Signs: Temp Pulse Resp BP Pulse Ox 17 115/75 95 06/28/18 22:01 06/28/18 22:01 06/28/18 22:01 Additional comments: General appearance: Well-developed, well-nourished, alert and cooperative, and appears to be in no acute distress Head: Normocephalic Eyes: PEERL, EOMI, vision is grossly intact. Ears: External auditory canal and tympanic membranes clear, hearing grossly intact. Nose: No nasal discharge. Throat: Oral cavity and pharynx normal. No inflammation, swelling, exudate or lesions. Neck: Neck supple, nontender without lymphadenopathy, masses or thyromegaly. Cardiac: Normal S1 and S2. No S3, S4 or murmurs. Rhythm is regular. There is no peripheral edema, cyanosis or pallor. Extremities are warm and well perfused. Capillary refill is less than 2 seconds. No carotid bruits. Lungs: Clear to auscultation and percussion without rales, rhonchi, wheezing or diminished breath sounds. Not using accessory muscles. Abdomen: Positive bowel sounds. Soft. Nondistended, nontender. No guarding or rebound. No masses. No hepatosplenomegaly Extremities: No significant deformity or joint abnormality. No edema. Peripheral pulses intact. No varicosities. Neurological: Cranial nerves II through XII grossly intact. Strength and sensation symmetric and intact throughout. Reflexes 2+ throughout. Skin: Skin normal color, texture and turgor with no lesions or eruptions, warm and dry. Psychiatric: The mental examination revealed the patient was oriented to person , place, and time. The patient was able to demonstrate good judgment on recent , without hallucinations, abnormal affect or abnormal behaviors. Results Laboratory Results: 06/28/18 06/28/18 06/29/18 21:05 21:05 00:55 Sodium 135.1 L Potassium 4.1 Chloride 103 Carbon Dioxide 24 Anion Gap 8 BUN 23 H Creatinine 0.77 Est GFR ( Amer) > 60 Est GFR (Non-Af Amer) > 60 Glucose 117 H Calcium 8.3 L Total Bilirubin 0.2 Direct Bilirubin 0.2 AST 19 ALT 32 Alkaline Phosphatase 68 Creatine Kinase 95 CK-MB (CK-2) 0.46 Troponin I < 0.012 < 0.012 Total Protein 5.8 L Albumin 3.2 L Impressions: Chest X-Ray 06/28/18 20:56 IMPRESSION: No acute cardiopulmonary findings. Chest/Abdomen CTA 06/28/18 22:21 IMPRESSION: There is no pulmonary embolism, airspace infiltrates or pleural effusions There is a 2 cm fat-containing benign right adrenal adenoma and a 1 cm nodule in the left adrenal, indeterminate on the current study and can be further assessed with a dedicated CT of the adrenal glands Assessment & Plan - Diagnosis (1) Near syncope Is this a current diagnosis for this admission?: Yes Plan: Patient came with a near syncopal episode, blood pressure found 60/40s initially , now blood pressure back to normal IV fluids. Patient is asymptomatic but initially was complaining of multiple different symptoms including chest pain, dizziness, weakness, diaphoresis, bilateral upper extremities tingling. Concerns for coronary arterial disease reason for which we will keep the patient under telemetry monitoring, cycle cardiac enzymes 3 and doing and a stress test. Continue with IV fluids until the morning. Urine drug screen (2) Hypertension Qualifiers: Hypertension type: essential hypertension Qualified Code(s): I10 - Essential (primary) hypertension Is this a current diagnosis for this admission?: Yes Plan: Patient has been hypotensive, we will hold her lisinopril. (3) Hypothyroidism Is this a current diagnosis for this admission?: Yes Plan: Continue levothyroxine. We will send TSH. (4) ADHD Is this a current diagnosis for this admission?: Yes Plan: Continue Adderall - Time Time Spent: 30 to 50 Minutes
--- NOTE | 2018-06-29 08:22 | EKG REPORT ---
SEVERITY:- ABNORMAL ECG - SINUS RHYTHM CONSIDER ANTERIOR INFARCT : Confirmed by: Vicente Vincent MD 29-Jun-2018 07:39:59
--- NOTE | 2018-06-29 08:27 | EKG REPORT ---
SEVERITY:- OTHERWISE NORMAL ECG - SINUS RHYTHM BORDERLINE RIGHT AXIS DEVIATION : Confirmed by: Vicente Vincent MD 29-Jun-2018 07:40:36
--- NOTE | 2018-06-29 08:27 | EKG REPORT ---
SEVERITY:- OTHERWISE NORMAL ECG - SINUS RHYTHM BORDERLINE RIGHT AXIS DEVIATION : Confirmed by: Vicente Vincent MD 29-Jun-2018 07:40:24
[2018-06-29] MEDS: ENOXAPARIN SODIUM INJ 40 MG/0.4 ML DISP.SYRIN SUBCUT SCH (09:47)
[2018-06-29] MEDS ORDERED: AMPHETAMINE PO SCH (10:00)
[2018-06-29] MEDS ORDERED: LEVOTHYROXINE SODIUM 0.1 MG TABLET PO SCH (10:00)
[2018-06-29] MEDS ORDERED: DEXTROAMPHETAMINE PO SCH (10:00)
[2018-06-29] MEDS: NORMAL SALINE 1000 ML 1,000 ML IV PRN ×2 (11:25→19:47)
[2018-06-29 15:19] LABS: APPEARANCE,URINE CLEAR; BILIRUBIN,URINE NEGATIVE (NEGATIVE); COLOR,URINE YELLOW; GLUCOSE, URINE 50 mg/dL (NEGATIVE); KETONES,URINE TRACE mg/dL (NEGATIVE); LEUKOCYTE ESTERASE,URINE NEGATIVE (NEGATIVE); NITRITE,URINE NEGATIVE (NEGATIVE); PROTEIN,URINE NEGATIVE (NEGATIVE); URINE SPECIFIC GRAVITY 1.016; UROBILINOGEN,URINE NEGATIVE mg/dL (<2.0)
[2018-06-29 15:32] LABS: URINE AMPHETAMINES SCREEN NEGATIVE; URINE BARBITURATES SCREEN NEGATIVE; URINE BENZODIAZEPINES SCREEN NEGATIVE; URINE COCAINE SCREEN NEGATIVE; URINE MARIJUANA (THC) SCREEN NEGATIVE; URINE METHADONE SCREEN NEGATIVE; URINE PHENCYCLIDINE SCREEN NEGATIVE
[2018-06-29] MEDS ORDERED: ZOLPIDEM TARTRATE 5 MG TABLET PO SCH (22:00)
[2018-06-29] MEDS ORDERED: (PENDING PHARMACY ID) (Eszopiclone [Lunesta] 1 MG) PO SCH (22:00)
--- NOTE | 2018-06-29 23:33 | PDOC CONSULTATION ---
Consultation Consult Date: 06/29/18 Attending physician:: YANET THORNTON Consult reason:: Chest pain History of Present Illness Admission Date/PCP: 06/29/18 02:00 ALFONSO HERNANDEZ MD Patient complains of: Chest pain History of Present Illness: [place] is a 52 year old female presents to the emergency department via EMS. Patient tells me that she is not feeling well for the last 2 days complains of bad headaches, generalized weakness, shortness of breath during physical activity reason for which she has been laying down on the couch most of the day. They she went to donate plasma, at 4 PM started with chest tightness, nonradiating, 10/10 intensity resolve spontaneously. Around 7 PM she went to [facility] and started feeling dizzy, weakness on both legs, she could not talk, she had to sit down, she was diaphoretic, her arms were sweating , she did not fall to the floor and did not hit her head. Also complains of bilateral upper extremity tingling shortness of breath. When EMS arrived her blood pressure was 60/40, it improves in the ED with IV fluids, currently 115/ 70. She goes to the gym, last 2 days ago and did not have any symptomatology before. Denies having any stress test in the past. 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 Tells me that she has been drinking fluids at home. EKG unremarkable. Troponins 1 negative. This history was reviewed with the patient and confirmed. Patient denies any prior history of heart problem. Patient claims that she is fairly physically active. She does however suffer from significant sleep related issues which includes mainly insomnia although she has been noted to have some snoring. Patient denied any history of acid reflux, blood clots in the legs are in the lungs. Past Medical History Cardiac Medical History: Reports: Hypertension Neurological Medical History: Reports: Migraine Endocrine Medical History: Reports: Diabetes Mellitus Type 2, Hypothyroidism Psychiatric Medical History: Reports: Attention Deficit Hyperactivity Disorder Infectious Medical History: Denies: Methicillin-Resistant Staph Aureus Past Surgical History Past Surgical History: Reports: Appendectomy, Hysterectomy, Orthopedic Surgery - Right tibial sun Social History Information Source: Patient Lives with: Family - Son Smoking Status: Never Smoker Frequency of Alcohol Use: Occasional Hx Recreational Drug Use: No Drugs: None Hx Prescription Drug Abuse: No - Advance Directive Resuscitation Status: Full Code Family History Family History: Reviewed & Not Pertinent, Other Parental Family History Reviewed: Yes Children Family History Reviewed: Yes Sibling(s) Family History Reviewed.: Yes Medication/Allergy Home Medications: Diazepam [Diazepam] 2 mg PO DAILYP PRN 06/28/18 Eszopiclone [Lunesta] 1 mg PO QHS 06/28/18 Levothyroxine Sodium [Synthroid 0.1 mg Tablet] 0.1 mg PO Q6AM 06/28/18 Lisinopril 20 mg PO DAILY 06/28/18 Biotin [Biotin 1 mg Tablet] 1 mg PO DAILYP PRN 06/29/18 Dextroamphetamine/Amphetamine [Adderall Xr 20 mg Capsule] 20 mg PO QAM 06/29/18 Allergies/Adverse Reactions: paroxetine HCl [From Paxil] Allergy (Verified 06/28/18 21:24) Penicillins Allergy (Verified 06/28/18 21:24) shellfish derived Allergy (Verified 06/28/18 22:48) Review of Systems Review of Systems: Please see history of present illness and past medical history as wall. Constitutional: No fever or chills reported. Head : No recent chronic headaches, recent head injury. Eyes: No recent eye pain, diplopia, redness, discharge, acute visual changes. Ears: No recent chronic ear pain, acute hearing loss, ear discharge. Oral cavity: No recent ulcerations, bleeding, oral cavity discomfort. Neck: No recent acute neck pain reported. Hematologic: No recent easy bruising or bleeding. Lymphatic: No recent lymph node enlargement reported. Cardiovascular system review: See history of present illness. Respiratory system review: No hemoptysis or blood clots in the lungs reported. Mild Shortness of breath on exertion Gastrointestinal system review: Negative for any recent acute hematemesis, melena. Genitourinary system review: No recent acute or chronic hematuria, flank pain, UTI etc. reported. Skin system review: Negative for any recent abnormal bruising, no rash, no pruritus reported. Neurologic: No prior history of strokes, mini strokes, seizure disorder. Psychologic: No history of major psychosis or major depression reported. Musculoskeletal: Minor aches and pains reported. No acute joint swelling reported. Endocrine: No recent polyuria, polydipsia, recent heat or cold intolerance. Physical Exam Vital Signs: Temp Pulse Resp BP Pulse Ox 97.7 F 102 H 14 119/67 96 06/29/18 19:33 06/29/18 19:33 06/29/18 19:33 06/29/18 19:33 06/29/18 19:33 Intake & Output 06/28/18 06/29/18 06/30/18 06:59 06:59 06:59 Intake Total 1414 Balance 1414 Weight 90.9 kg Exam: GENERAL: well-nourished and in no acute distress. Alert and oriented x3 HEAD: Atraumatic, normocephalic. EYES: Pupils equal round and reactive to light, extraocular movements intact, sclera anicteric, conjunctiva are normal. ENT: TMs normal, nares patent, oropharynx clear without exudates. Moist mucous membranes. No oral ulcerations or bleeding gums noted NECK: supple without lymphadenopathy. Trachea is central. No cervical or axillary lymphadenopathy noted. Carotids are 2+, JVD WNL LUNGS: Respiration seems nonlabored, no significant accessory muscle action noted. Breath sounds clear to auscultation bilaterally and equal noted. No wheezes rales or rhonchi noted. No significant dullness noted on percussion. CHEST: Palpation of the chest wall shows no significant chest wall tenderness. 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 ABDOMEN: Soft, no significant tenderness appreciated, normoactive bowel sounds. No guarding, no rebound. No rigidity noted . No masses appreciated. EXTREMITIES: Pedal pulses are 1-2+, no calf tenderness noted. No clubbing or cyanosis. negative pedal edema noted NEUROLOGICAL: Focused neurological exam showed no significant neurologic deficit. Normal speech, no focal weakness appreciated. PSYCH: Normal mood, normal affect. Judgment and insight within normal limits. SKIN: No significant ecchymosis, skin is noted to be warm. MUSCULOSKELETAL EXAM: No significant acute joint swelling noted. Results Laboratory Results: 06/29/18 14:55 Urine Color YELLOW Urine Appearance CLEAR Urine pH 6.0 Ur Specific [place] 1.016 Urine Protein NEGATIVE Urine Glucose (UA) 50 H Urine Ketones TRACE H Urine Blood NEGATIVE Urine Nitrite NEGATIVE Ur Leukocyte Esterase NEGATIVE Urine WBC (Auto) 1 Urine RBC (Auto) 5 06/29/18 06/29/18 06/29/18 03:52 11:31 15:45 Troponin I < 0.012 < 0.012 < 0.012 EKG Comments: Sinus rhythm, no acute ST-T wave changes are noted. Impressions: Chest X-Ray 06/28/18 20:56 IMPRESSION: No acute cardiopulmonary findings. Chest/Abdomen CTA 06/28/18 22:21 IMPRESSION: There is no pulmonary embolism, airspace infiltrates or pleural effusions There is a 2 cm fat-containing benign right adrenal adenoma and a 1 cm nodule in the left adrenal, indeterminate on the current study and can be further assessed with a dedicated CT of the adrenal glands Assessment & Plan - Diagnosis (1) Chest pain Qualifiers: Chest pain type: unspecified Qualified Code(s): R07.9 - Chest pain, unspecified Is this a current diagnosis for this admission?: Yes (2) ADHD Qualifiers: Attention deficit-hyperactivity disorder type: unspecified Qualified Code(s ): F90.9 - Attention-deficit hyperactivity disorder, unspecified type Is this a current diagnosis for this admission?: Yes (3) Hypertension Qualifiers: Hypertension type: essential hypertension Qualified Code(s): I10 - Essential (primary) hypertension Is this a current diagnosis for this admission?: Yes (4) Hypothyroidism Qualifiers: Hypothyroidism type: unspecified Qualified Code(s): E03.9 - Hypothyroidism , unspecified Is this a current diagnosis for this admission?: Yes (5) Near syncope Is this a current diagnosis for this admission?: Yes (6) Sleep disorder breathing Is this a current diagnosis for this admission?: Yes - Notes Notes: Multiple differential diagnosis of chest pain discussed with the patient. For further evaluation patient is being scheduled for a 2D echocardiogram and a nuclear stress test. So far cardiac enzymes and EKGs have been relatively unremarkable. Chest pain: Multiple differential diagnosis discussed. Could be cardiac ischemia, gastroesophageal reflux, anxiety panic disorder. Pulmonary embolism, aortic dissection etc. ruled out by CTA. Patient to be scheduled for a nuclear stress test. ADHD: Need to rule out possible sleep disorder as cause of ADHD. Hypertension: Agree with CHA inhibitor therapy. May consider adding beta blockers. Hypothyroidism: Continue Synthroid replacement. Near syncope: Most likely neurocardiogenic. Will recommend cardiac event loop monitor or mobile cardiac telemetry monitoring as an outpatient. Sleep disorder: Patient has insomnia but may also have underlying sleep apnea syndrome. Will recommend a sleep evaluation as an outpatient. - Time Time Spent: 30 to 50 Minutes - CODE STATUS was discussed, patient remains full code. Surrogate decision-maker unchanged. Multiple medical problems were addressed. More than 50% of the time spent coordinating care, discussing management plans with involved caregivers. Management plans discussed with involved personnels. Medical decision making was of moderate to high complexity , patient's has multiple comorbidities. Medications reviewed and adjusted accordingly: Yes
[2018-06-30] MEDS ORDERED: LEVOTHYROXINE SODIUM 0.1 MG TABLET PO SCH (06:00)
[2018-06-30] MEDS: NORMAL SALINE 1000 ML 1,000 ML IV PRN (06:04)
--- NOTE | 2018-06-30 10:20 | RADIOLOGY REPORT (SQ) ---
EXAM DESCRIPTION: CT HEAD WITHOUT COMPLETED DATE/TIME: 06/30/2018 10:11 am REASON FOR STUDY: Fall COMPARISON: 04/02/2013. TECHNIQUE: Axial images acquired through the brain without intravenous contrast. Images reviewed wi th bone, brain and subdural windows. Additional sagittal and coronal reconstructions were generated. Images stored on PACS. All CT scanners at this facility use dose modulation, iterative reconstruction, and/or weight based d osing when appropriate to reduce radiation dose to as low as reasonably achievable (ALARA). [facility]: Dose Right [facility]: CareDose [facility]: Dose Right [facility]: Teradose 4D [facility]: [employer] (ROOF) RADIATION DOSE: CT Rad equipment meets quality standard of care and radiation dose reduction techniq ues were employed. CTDIvol: 48.5 mGy. DLP: 903 mGy-cm. mGy. LIMITATIONS: None. FINDINGS: VENTRICLES: Normal size and contour. CEREBRUM: No masses. No hemorrhage. No midline shift. No evidence for acute infarction. Normal gra y/white matter differentiation. No areas of low density in the white matter. CEREBELLUM: No masses. No hemorrhage. No alteration of density. No evidence for acute infarction. EXTRAAXIAL SPACES: No fluid collections. No masses. ORBITS AND GLOBE: No intra- or extraconal masses. Normal contour of globe without masses. CALVARIUM: No fracture. PARANASAL SINUSES: No fluid or mucosal thickening. SOFT TISSUES: No mass or hematoma. OTHER: No other significant finding. IMPRESSION: NORMAL BRAIN CT WITHOUT CONTRAST. EVIDENCE OF ACUTE STROKE: NO. COMMENT: Quality ID # [id number]: Final reports with documentation of one or more dose reduction techniques (e.g., Automated exposure control, adjustment of the mA and/or kV according to patient size, use of iterative reconstruction technique) TECHNICAL DOCUMENTATION: JOB ID: [id number] [employer]- All Rights Reserved Reading location - IP/workstation name: [facility]-[email or web address]
[2018-06-30] MEDS: ENOXAPARIN SODIUM INJ 40 MG/0.4 ML DISP.SYRIN SUBCUT SCH (10:39)
[2018-06-30] MEDS ORDERED: ACETAMINOPHEN 325 MG TABLET PO PRN (10:46)
[2018-06-30 11:27] LABS: ABSOLUTE LYMPHOCYTES (AUTO) 1.8 10^3/uL (0.5-4.7); ABSOLUTE MONOCYTES (AUTO) 0.5 10^3/uL (0.1-1.4); ABSOLUTE NEUT (AUTO) 2.5 10^3/uL (1.7-8.2); BASOPHILS % (AUTO) 0.7 % (0-2); EOSINOPHILS % (AUTO) 0.2 % (0-6); HEMATOCRIT 38.3 % (36.0-47.0); HEMOGLOBIN 12.8 g/dL (12.0-15.5); LYMPHOCYTES % (AUTO) 36.3 % (13-45); MEAN CORPUSCULAR HEMOGLOBIN 29.9 pg (27.0-33.4); MEAN CORPUSCULAR HGB CONC 33.5 g/dL (32.0-36.0); MEAN CORPUSCULAR VOLUME 89 fl (80-97); MONOCYTES % (AUTO) 10.5 % (3-13); PLATELET COUNT 285 10^3/uL (150-450); RED BLOOD COUNT 4.29 10^6/uL (3.72-5.28); RED CELL DISTRIBUTION WIDTH 13.2 % (11.5-14.0); SEGMENTED NEUTROPHILS % (AUTO) 52.3 % (42-78); TOTAL CELLS COUNTED % (AUTO) 100 %; WHITE BLOOD COUNT 4.8 10^3/uL (4.0-10.5)
[2018-06-30 11:44] LABS: ANION GAP 8 (5-19); BLOOD UREA NITROGEN 21 mg/dL (7-20); CALCIUM 8.3 mg/dL (8.4-10.2); CARBON DIOXIDE 23 mmol/L (22-30); CHLORIDE 108 mmol/L (98-107); GLUCOSE 91 mg/dL (75-110); POTASSIUM 4.3 mmol/L (3.6-5.0); SODIUM 138.7 mmol/L (137-145)
--- NOTE | 2018-06-30 12:27 | PDOC PROGRESS REPORT ---
Subjective Progress Note for:: 06/30/18 Subjective:: Patient seems to be doing better with gradual improvement. Pt is denying any chest arm or neck discomfort. Patient denying any PND, orthopnea. Patient denied any sustained palpitations, dizziness, syncope, near syncope. Patient denying any fever chills. Patient denying any other significant discomfort. Patient is maintaining sinus rhythm. Review of systems: Rest review of systems negative. Medications: Medications have been reviewed. Reason For Visit: NEAR SYNCOPE Physical Exam Vital Signs: Temp Pulse Resp BP Pulse Ox 97.6 F 89 16 122/82 100 06/30/18 11:50 06/30/18 11:50 06/30/18 11:50 06/30/18 11:50 06/30/18 11:50 Intake & Output 06/29/18 06/30/18 07/01/18 06:59 06:59 06:59 Intake Total 2814 427 Balance 2814 427 Weight 90.9 kg Exam: GENERAL: well-nourished and in no acute distress. Alert and oriented x3 HEAD: Atraumatic, normocephalic. EYES: Pupils equal round and reactive to light, extraocular movements intact, sclera anicteric, conjunctiva are normal. ENT: TMs normal, nares patent, oropharynx clear without exudates. Moist mucous membranes. No oral ulcerations or bleeding gums noted NECK: supple without lymphadenopathy. Trachea is central. No cervical or axillary lymphadenopathy noted. Carotids are 2+, JVD WNL LUNGS: Respiration seems nonlabored, no significant accessory muscle action noted. Breath sounds clear to auscultation bilaterally and equal noted. No wheezes rales or rhonchi noted. No significant dullness noted on percussion. CHEST: Palpation of the chest wall shows no significant chest wall tenderness. 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 ABDOMEN: Soft, no significant tenderness appreciated, normoactive bowel sounds. No guarding, no rebound. No rigidity noted . No masses appreciated. EXTREMITIES: Pedal pulses are 1-2+, no calf tenderness noted. No clubbing or cyanosis. negative pedal edema noted NEUROLOGICAL: Focused neurological exam showed no significant neurologic deficit. Normal speech, no focal weakness appreciated. PSYCH: Normal mood, normal affect. Judgment and insight within normal limits. SKIN: No significant ecchymosis, skin is noted to be warm. MUSCULOSKELETAL EXAM: No significant acute joint swelling noted. Results Laboratory Results: 06/30/18 10:30 06/30/18 10:30 06/29/18 06/30/18 06/30/18 14:55 10:30 10:30 WBC 4.8 RBC 4.29 Hgb 12.8 Hct 38.3 MCV 89 MCH 29.9 MCHC 33.5 RDW 13.2 Plt Count 285 Seg Neutrophils % 52.3 Lymphocytes % 36.3 Monocytes % 10.5 Eosinophils % 0.2 Basophils % 0.7 Absolute Neutrophils 2.5 Absolute Lymphocytes 1.8 Absolute Monocytes 0.5 Absolute Eosinophils 0.0 Absolute Basophils 0.0 Sodium 138.7 Potassium 4.3 Chloride 108 H Carbon Dioxide 23 Anion Gap 8 BUN 21 H Creatinine 0.65 Est GFR ( Amer) > 60 Est GFR (Non-Af Amer) > 60 Glucose 91 Calcium 8.3 L Urine Color YELLOW Urine Appearance CLEAR Urine pH 6.0 Ur Specific [place] 1.016 Urine Protein NEGATIVE Urine Glucose (UA) 50 H Urine Ketones TRACE H Urine Blood NEGATIVE Urine Nitrite NEGATIVE Ur Leukocyte Esterase NEGATIVE Urine WBC (Auto) 1 Urine RBC (Auto) 5 06/29/18 06/29/18 06/29/18 03:52 11:31 15:45 Troponin I < 0.012 < 0.012 < 0.012 Impressions: Chest X-Ray 06/28/18 20:56 IMPRESSION: No acute cardiopulmonary findings. Chest/Abdomen CTA 06/28/18 22:21 IMPRESSION: There is no pulmonary embolism, airspace infiltrates or pleural effusions There is a 2 cm fat-containing benign right adrenal adenoma and a 1 cm nodule in the left adrenal, indeterminate on the current study and can be further assessed with a dedicated CT of the adrenal glands Head CT 06/30/18 00:00 IMPRESSION: NORMAL BRAIN CT WITHOUT CONTRAST. EVIDENCE OF ACUTE STROKE: NO. Assessment & Plan - Diagnosis (1) Chest pain Qualifiers: Chest pain type: unspecified Qualified Code(s): R07.9 - Chest pain, unspecified Is this a current diagnosis for this admission?: Yes (2) ADHD Qualifiers: Attention deficit-hyperactivity disorder type: unspecified Qualified Code(s ): F90.9 - Attention-deficit hyperactivity disorder, unspecified type Is this a current diagnosis for this admission?: Yes (3) Hypertension Qualifiers: Hypertension type: essential hypertension Qualified Code(s): I10 - Essential (primary) hypertension Is this a current diagnosis for this admission?: Yes (4) Hypothyroidism Qualifiers: Hypothyroidism type: unspecified Qualified Code(s): E03.9 - Hypothyroidism , unspecified Is this a current diagnosis for this admission?: Yes (5) Near syncope Is this a current diagnosis for this admission?: Yes (6) Sleep disorder breathing Is this a current diagnosis for this admission?: Yes - Notes Notes: Chest pain: Multiple differential diagnosis discussed. Nuclear stress test noted to be relatively low risk however significant breast attenuation artifacts were noted. Cardiac enzymes are noted to be negative. 2D echo is still pending. If patient does well on ambulation, could be discharged with possible stress echo scheduled as an outpatient if she continues with chest pain. I have low suspicion of her chest pain being cardiac in etiology. ADHD: Need to rule out possible sleep disorder as cause of ADHD. Hypertension: Agree with CHA inhibitor therapy. May consider adding beta blockers. Hypothyroidism: Continue Synthroid replacement. Near syncope: Most likely neurocardiogenic. Will recommend cardiac event loop monitor or mobile cardiac telemetry monitoring as an outpatient. Sleep disorder: Patient has insomnia but may also have underlying sleep apnea syndrome. Will recommend a sleep evaluation as an outpatient. - Time Time with patient: Greater than 35 minutes - CODE STATUS was discussed, patient remains full code. Surrogate decision-maker unchanged. Multiple medical problems were addressed. More than 50% of the time spent coordinating care, discussing management plans with involved caregivers. Management plans discussed with involved personnels. Medical decision making was of moderate to high complexity, patient's has multiple comorbidities. Medications reviewed and adjusted accordingly: Yes
--- NOTE | 2018-06-30 12:34 | DRAGON STRESS TEST REPORT ---
INTRAVENOUS LEXISCAN CARDIOLITE STRESS TEST USING SINGLE PHOTON EMMISION COMPUTERIZED TOMOGRAPHIC. DATE OF PROCEDURE: June 30, 2018, INDICATION : Chest pain CARDIAC RISK FACTORS: Diabetes, hypertension RESTING EKG: Sinus rhythm without any baseline ST-T wave changes STRESS EKG: No significant ST segment changes noted with LexiScan bolus REASON FOR TERMINATION: Protocol. PROCEDURE REPORT: Baseline heart rate 100 beats per minute with blood pressure of 109/79. Patient had no significant complaints. Patient was bolused with Lexiscan 0.4 mg intravenously followed by saline bolus. Heart rate at 2 minutes post bolus 129 with a blood pressure of 115/66. 3 minutes post bolus heart rate 117 with blood pressure of 116/68. No significant EKG changes were noted. Patient had no significant complaints during the procedure or postprocedure. CONCLUSIONS: Normal EKG and hemodynamic response to IV LexiScan. NUCLEAR DATA: At rest the patient was given 14.49 millicuries of technetium 99 sestamibi injected intravenously. As per protocol rest gated SPECT images were obtained. On day of stress test, the patient was given intravenous LexiScan at a dose of 0.4 mg in 5 mL intravenously, followed by flush with normal saline. Subsequently the stress dose of 43.3 millicuries of technetium 99 sestamibi was injected intravenously. As per protocol stress gated images were obtained. NUCLEAR INTERPRETATION: Both raw and processed data were used for interpretation. Visual, qualitative, computer-generated quantitative data was used. There was good myocardial uptake of technetium compound. Motion artifact and soft tissue attenuations were noted. Increased visceral uptake was noted. Significant breast attenuation artifacts are noted. There is borderline decreased uptake in the mid and basal anterior wall, felt to be mostly artifactual. No definitive areas of transient perfusion defect noted, No definitive areas of fixed perfusion defect or scars noted. EKG gated imaging showed LV EF at 66 %, rest and stress gated EF similar visually. T. I D. ratio was 1.09. Lung heart ratio noted to be within normal limits 0.27. No significant extracardiac and abnormal radiotracer activities were noted. RV free wall uptake was noted to be WNL. IMPRESSION: Also refer to comments under nuclear interpretation. Also test results needs to be interpreted in the context of pretest probability. 1. No definitive areas of transient perfusion defect noted. Significant breast attenuation artifact noted which could hide mild ischemia. May consider stress echo as an outpatient especially if patient continues with chest pain. 2. There is no definitive scintigraphic evidence of myocardial infarction/scar. 3. EKG gated imaging shows left ventricular ejection fraction of approx. 66 %. 4. Clinical correlation requested as worse disease and or balanced ischemia could be missed. In approximately 10% of the cases Lexiscan may not cause adequate vasodilatory stress. RECOMMENDATIONS: Aggressive risk factor modification and medical management. Further evaluation may be needed if continued symptoms or other high risk indicators are noted on clinical evaluation. Close cardiology follow-up is also recommended. Clinical correlation with echocardiogram derived ejection fraction. Inability to exercise by itself can lead to increased cardiovascular event risks. Consider cardiology consultation and or follow-up if clinically indicated. I am available for cardiology evaluation and consultation if requested by the registered dental hygienist, unless patient already has a brokerage office manager. Dr. William Ch. MRCP Board certified in cardiology and sleep medicine. Board certified in nuclear cardiology, adult echocardiography. NIKOLE
[2018-06-30] MEDS ORDERED: REGADENOSON INJ 0.4 MG/5 ML DISP.SYRIN IV ONE (14:58)
[2018-06-30 15:43] VITALS: BP 118/77
--- NOTE | 2018-06-30 18:45 | PDOC DISCHARGE SUMMARY ---
General - Admit/Disc Date/PCP Admission Date/Primary Care Provider: 06/29/18 02:00 ALFONSO HERNANDEZ MD Discharge Date: 06/30/18 - Discharge Diagnosis (1) Chest pain Is this a current diagnosis for this admission?: Yes (2) Hypertension Is this a current diagnosis for this admission?: Yes (3) Hypothyroidism Is this a current diagnosis for this admission?: Yes (4) Near syncope Is this a current diagnosis for this admission?: Yes (5) Sleep disorder breathing Is this a current diagnosis for this admission?: Yes - Additional Information Resuscitation Status: Full Code Discharge Diet: As Tolerated Discharge Activity: Activity As Tolerated Home Medications: Diazepam 2 mg PO DAILYP PRN 06/28/18 Eszopiclone [Lunesta] 1 mg PO QHS 06/28/18 Levothyroxine Sodium [Synthroid 0.1 mg Tablet] 0.1 mg PO Q6AM 06/28/18 Lisinopril 20 mg PO DAILY 06/28/18 Biotin [Biotin 1 mg Tablet] 1 mg PO DAILYP PRN 06/29/18 Dextroamphetamine/Amphetamine [Adderall Xr 20 mg Capsule] 20 mg PO QAM 06/29/18 History of Present Illness History of Present Illness: NEW ARAMBULA is a 52 year old female presented to the emergency department via EMS. c/o not feeling well, bad headaches, generalized weakness, shortness of breath during physical activity. On the of admission she went to donate plasma, at 4 PM started with chest tightness, nonradiating, 10/10 intensity resolved spontaneously. Around 7 PM she went to [facility] and started feeling dizzy, weakness on both legs, she could not talk, she had to sit down, she was diaphoretic, her arms were sweating , she did not fall to the floor and did not hit her head. Also complains of bilateral upper extremity tingling shortness of breath. In ED she was found to be hypertensive which improve in the with IV fluids. Hospital Course Hospital Course: Patient did not have any recurrence of her chest pain or presyncope. During hospitalization patient remained asymptomatic. Troponins 3 were negative EKG was read as sinus rhythm, patient also had a echocardiography which was unremarkable and also a nuclear stress test which was also unremarkable (zia refer to cardiology/Radiology notes). A CT of the head was also done which was unremarkable. CBC, CMP unremarkable. Upon discharge she was asked to follow-up with Dr. Ch in 1 week and also restart her home medication. Physical Exam Vital Signs: Temp Pulse Resp BP Pulse Ox 97.8 F 90 16 118/77 99 06/30/18 17:42 06/30/18 17:42 06/30/18 17:42 06/30/18 17:42 06/30/18 17:42 Intake & Output 06/29/18 06/30/18 07/01/18 06:59 06:59 06:59 Intake Total 2814 1257 Balance 2814 1257 Weight 90.9 kg General appearance: PRESENT: no acute distress, well-developed, well-nourished Head exam: PRESENT: atraumatic, normocephalic Eye exam: PRESENT: conjunctiva pink, EOMI, PERRLA. ABSENT: scleral icterus Ear exam: PRESENT: normal external ear exam Mouth exam: PRESENT: moist, tongue midline Neck exam: ABSENT: carotid bruit, JVD, lymphadenopathy, thyromegaly Respiratory exam: PRESENT: clear to auscultation regina. ABSENT: rales, rhonchi, wheezes Cardiovascular exam: PRESENT: RRR. ABSENT: diastolic murmur, rubs, systolic murmur Pulses: PRESENT: normal dorsalis pedis pul Vascular exam: PRESENT: normal capillary refill GI/Abdominal exam: PRESENT: normal bowel sounds, soft. ABSENT: distended, guarding, mass, organolmegaly, rebound, tenderness Rectal exam: PRESENT: deferred Extremities exam: PRESENT: full ROM. ABSENT: calf tenderness, clubbing, pedal edema Neurological exam: PRESENT: alert, awake, oriented to person, oriented to place , oriented to time, oriented to situation, CN II-XII grossly intact. ABSENT: motor sensory deficit Psychiatric exam: PRESENT: appropriate affect, normal mood. ABSENT: homicidal ideation, suicidal ideation Skin exam: PRESENT: dry, intact, warm. ABSENT: cyanosis, rash Results Laboratory Results: 06/30/18 10:30 06/30/18 10:30 06/30/18 06/30/18 10:30 10:30 WBC 4.8 RBC 4.29 Hgb 12.8 Hct 38.3 MCV 89 MCH 29.9 MCHC 33.5 RDW 13.2 Plt Count 285 Seg Neutrophils % 52.3 Lymphocytes % 36.3 Monocytes % 10.5 Eosinophils % 0.2 Basophils % 0.7 Absolute Neutrophils 2.5 Absolute Lymphocytes 1.8 Absolute Monocytes 0.5 Absolute Eosinophils 0.0 Absolute Basophils 0.0 Sodium 138.7 Potassium 4.3 Chloride 108 H Carbon Dioxide 23 Anion Gap 8 BUN 21 H Creatinine 0.65 Est GFR ( Amer) > 60 Est GFR (Non-Af Amer) > 60 Glucose 91 Calcium 8.3 L 06/29/18 06/29/18 06/29/18 03:52 11:31 15:45 Troponin I < 0.012 < 0.012 < 0.012 Impressions: Chest X-Ray 06/28/18 20:56 IMPRESSION: No acute cardiopulmonary findings. Chest/Abdomen CTA 06/28/18 22:21 IMPRESSION: There is no pulmonary embolism, airspace infiltrates or pleural effusions There is a 2 cm fat-containing benign right adrenal adenoma and a 1 cm nodule in the left adrenal, indeterminate on the current study and can be further assessed with a dedicated CT of the adrenal glands Head CT 06/30/18 00:00 IMPRESSION: NORMAL BRAIN CT WITHOUT CONTRAST. EVIDENCE OF ACUTE STROKE: NO. Qualifiers - * PATIENT BEING DISCHARGED WITH ANY OF THE FOLLOWING DIAGNOSIS: No
--- NOTE | 2018-06-30 19:24 | XCELERA REPORT ---
[address] [address] Transthoracic Echocardiogram Report Name: NEW ARAMBULA Age: 52 yrs Gender: Female : 1965 Patient Status: Inpatient Patient Location: [address] [place], [place] [address] Study Date: 06/30/2018 02:56 PM Height: 66 in Weight: 200 lb BSA: 2.0 m2 Procedure: A complete two-dimensional transthoracic echocardiogram was performed (2D, M-mode, spectral and color flow Doppler). The study was technically adequate with some images being suboptimal in quality. Reason For Study: Chest pain Ordering Physician: SERGIO BOYER Performed By: James Guillen Interpretation Summary The left ventricular ejection fraction is normal. Doppler measurements suggest pseudonormalized left ventricular relaxation, which is associated with grade II/IV or mild to moderate diastolic dysfunction Wall motion cannot be accurately commented on, but no definite regional wall motion abnormalities noted. The left ventricle is grossly normal size. The right ventricular systolic function is normal. The left atrial size is normal. The right atrium is normal in size There is a mild to moderate amount of mitral regurgitation There is no mitral valve stenosis. No aortic regurgitation is present. There is no aortic valve stenosis There is a trace to mild amount of tricuspid regurgitation There is mild to moderate pulmonary hypertension by echo Right ventricular systolic pressure is estimated to be elevated at 40-50mmHg. The aortic root is not well visualized but is probably normal size. The inferior vena cava appeared normal and decreased > 50% with respiration (RAP 5-10 mmHg) There is no pericardial effusion. MMode/2D Measurements & Calculations RVDd: 2.9 cm LVIDd: 4.6 cm FS: 33.9 % Ao root diam: 3.2 cm IVSd: 0.75 cm LVIDs: 3.0 cm EDV(Teich): 97.4 ml Ao root area: 8.3 cm2 LVPWd: 0.84 cm ESV(Teich): 36.2 ml LA dimension: 2.6 cm EF(Teich): 62.9 % LVOT diam: 2.0 cm LVOT area: 3.3 cm2 Doppler Measurements & Calculations MV E max albina: MV P1/2t max albina: Ao V2 max: LV V1 max P.4 cm/sec 75.0 cm/sec 98.9 cm/sec 3.5 mmHg MV A max albina: MV P1/2t: 64.8 msec Ao max P.9 mmHg LV V1 max: 66.2 cm/sec MVA(P1/2t): 3.4 cm2 GENEVA(V,D): 3.1 cm2 93.6 cm/sec MV E/A: 1.2 MV dec slope: LV dP/dt: 2272 mmHg/s 338.9 cm/sec2 MV dec time: 0.18 sec PA V2 max: TR max albina: MV P1/2t-pr_phl: 56.1 cm/sec 334.8 cm/sec 64.8 msec PA max P.3 mmHgTR max P.8 mmHg Left Ventricle The left ventricle is grossly normal size. There is mild concentric left ventricular hypertrophy. The left ventricular ejection fraction is normal. Doppler measurements suggest pseudonormalized left ventricular relaxation, which is associated with grade II/IV or mild to moderate diastolic dysfunction. Wall motion cannot be accurately commented on, but no definite regional wall motion abnormalities noted. Right Ventricle The right ventricle is grossly normal size. There is normal right ventricular wall thickness. The right ventricular systolic function is normal. Atria The right atrium is normal in size. The left atrial size is normal. Interarterial septum not well visualized and not well dopplered. Cannot comment on ASD/PFO presence. Mitral Valve The mitral valve is grossly normal. There is no mitral valve stenosis. There is a mild to moderate amount of mitral regurgitation. Aortic Valve The aortic valve is grossly normal. There is no aortic valve stenosis. No aortic regurgitation is present. Tricuspid Valve The tricuspid valve is not well visualized, but is grossly normal. There is no tricuspid stenosis. There is a trace to mild amount of tricuspid regurgitation. There is mild to moderate pulmonary hypertension by echo. Right ventricular systolic pressure is estimated to be elevated at 40-50mmHg. Pulmonic Valve The pulmonic valve is not well seen, but is grossly normal. Great Vessels The aortic root is not well visualized but is probably normal size. The inferior vena cava appeared normal and decreased > 50% with respiration (RAP 5-10 mmHg). Effusions There is no pericardial effusion. : SERGIO BOYER > Sergio Boyer
== END 2018-06-30 19:45 | disposition home or self-care (01) ==
LOC: ER 20:33 → EH 06-29 02:00 → 4W 06-29 10:09
PROVIDERS: ADMIT Internal Medicine; ATTEND Internal Medicine
DX: R07.89 Other chest pain (principal); I10 Essential (primary) hypertension; E03.9 Hypothyroidism, unspecified; R55 Syncope and collapse; G47.30 Sleep apnea, unspecified; R20.2 Paresthesia of skin; R53.1 Weakness; R51 Headache; D35.01 Benign neoplasm of right adrenal gland; R06.02 Shortness of breath; R61 Generalized hyperhidrosis; R42 Dizziness and giddiness; G47.00 Insomnia, unspecified; R06.83 Snoring; F90.9 Attention-deficit hyperactivity disorder, unspecified type; Z79.899 Other long term (current) drug therapy; Z82.49 Family history of ischemic heart disease and other diseases of the circulatory system
CPT/HCPCS: 93005; 99285; 96374; 96375; 36415 ×3; 82553; 82550; 85025 ×2; 80048; 80053; 81001; 84484 ×2; 80307; 93306; 93017; 71045; 78452; 70450; 71275; 93010; G0378 ×3; A9500; J2785; J3490 ×6; J1200; J2930; J1650 ×2; J7030 ×2; S0028; Q9969

== ENCOUNTER 2018-07-06 10:19 | Emergency (ER) | payer MEDICAID ==
[2018-07-06] MEDS ORDERED: KETOROLAC TROMETHAMINE INJ/PF 30 MG/1 ML SDV IV ONE (10:37)
[2018-07-06] MEDS ORDERED: FENTANYL CITRATE INJ/PF 100 MCG/2 ML AMPUL IV ONE ×2 (10:37→12:04)
[2018-07-06] MEDS ORDERED: NORMAL SALINE 1000 ML 1,000 ML IV ONE (10:39)
--- NOTE | 2018-07-06 10:53 | ER Document Report ---
ED General - General Chief Complaint: Possible Kidney Stone Stated Complaint: FLANK PAIN Time Seen by Provider: 07/06/18 10:27 Mode of Arrival: Ambulatory Information source: Patient TRAVEL OUTSIDE OF THE [place] IN LAST 30 DAYS: No - HPI Patient complains to provider of: flank pain Onset: Other - 52 yo female without significan pmh that presents for evaluation of pain along the left side which she believes is a kidney stone which she has had in the past. She has never required intervention in the past to pass a stone. She denies any recent fevers, she does endorse some dysuria denies any constipation or diarrhea. Denies chest pain shortness of breath lightheadedness diaphoresis. - Related Data Allergies/Adverse Reactions: acetaminophen [From Percocet] Allergy (Verified 07/06/18 10:20) oxycodone [From Percocet] Allergy (Verified 07/06/18 10:20) paroxetine HCl [From Paxil] Allergy (Verified 06/28/18 21:24) Penicillins Allergy (Verified 06/28/18 21:24) shellfish derived Allergy (Verified 06/28/18 22:48) Past Medical History - General Information source: Patient - Social History Smoking Status: Unknown if Ever Smoked Family History: Reviewed & Not Pertinent, Other Patient has suicidal ideation: No Patient has homicidal ideation: No - Past Medical History Cardiac Medical History: Reports: Hx Hypertension Neurological Medical History: Reports: Hx Migraine Endocrine Medical History: Reports: Hx Diabetes Mellitus Type 2, Hx Hypothyroidism Renal/ Medical History: Denies: Hx Peritoneal Dialysis Psychiatric Medical History: Reports: Hx Attention Deficit Hyperactivity Disorder Traumatic Medical History: Reports: Hx Fractures Infectious Medical History: Denies: Hx MRSA Past Surgical History: Reports: Hx Appendectomy, Hx Hysterectomy, Hx Orthopedic Surgery - Right tibial sun - Immunizations Hx Diphtheria, Pertussis, Tetanus Vaccination: Yes Hx Pneumococcal Vaccination: 08/20/13 Review of Systems - Review of Systems -: Yes All other systems reviewed and negative Physical Exam - Vital signs Vitals: Pulse Resp BP Pulse Ox 98 24 H 162/108 H 100 07/06/18 10:38 07/06/18 10:38 07/06/18 10:38 07/06/18 10:38 - General General appearance: Appears well, Anxious In distress: Mild - HEENT Head: Normocephalic Eyes: Normal Conjunctiva: Normal Cornea: Normal Extraocular movements intact: Yes - Respiratory Respiratory status: No respiratory distress Chest status: Nontender Breath sounds: Normal Chest palpation: Normal - Cardiovascular Rhythm: Regular Heart sounds: Normal auscultation Murmur: No - Abdominal Inspection: Normal Distension: No distension Tenderness: Nontender Organomegaly: No organomegaly - Back Back: CVA tenderness - Extremities General upper extremity: Normal inspection, Nontender, Normal ROM, Normal strength General lower extremity: Normal inspection, Nontender, Normal ROM, Normal strength - Neurological Neuro grossly intact: Yes Cognition: Normal Orientation: AAOx4 [place] Coma Scale Eye Opening: Spontaneous [place] Coma Scale Verbal: Oriented [place] Coma Scale Motor: Obeys Commands Amor Coma Scale Total: 15 - Psychological Associated symptoms: Normal affect Course - Re-evaluation Re-evalutation: 07/06/18 11:00 52-year-old female with pain along the left flank, has had renal stones in the past thinks this is a renal stone. Is in obvious discomfort on evaluation. We will plan to administer Toradol, fentanyl IV. We will administer antiemetic as well and reassess patient will obtain urinalysis and addition of that. 07/06/18 12:19 Patient with hematuria modest pyuria no obvious sign of urinary tract infection will plan for culture will defer administration of antibiotics. We will plan for this patient be discharged with return precautions and encouraged follow-up with a urologist in the coming days, she is contacted one previously and had appointment scheduled but never made it. We will ensure she is able tolerate p.o. prior to discharge, will give a second dose of analgesia for her flank pain. Continue plan for this patient be discharged with return precautions however. - Vital Signs Vital signs: Temp Pulse Resp BP Pulse Ox 98 24 H 162/108 H 100 07/06/18 10:38 07/06/18 10:38 07/06/18 10:38 07/06/18 10:38 Discharge - Discharge Clinical Impression: Flank pain, Renal stone Condition: Good Disposition: HOME, SELF-CARE Instructions: Abdominal Pain ([facility]), Antinausea Medication ([facility]) Additional Instructions: You were seen today in the emergency room for the your flank pain. You likely have a kidney stone. Use the medication only as prescribed, return for fevers, return for worsening chills vomiting or inability to eat and drink. Otherwise scheduled appointment the urologist this week. Prescriptions: Hydrocodone/Acetaminophen [[place] 5-325 mg Tablet] 1 tab PO Q8H #15 tablet Referrals: ALFONSO HERNANDEZ MD [Primary Care Provider] - Follow up as needed
[2018-07-06 11:53] LABS: APPEARANCE,URINE CLOUDY; BILIRUBIN,URINE NEGATIVE (NEGATIVE); COLOR,URINE DARK YELLOW; GLUCOSE, URINE NEGATIVE (NEGATIVE); KETONES,URINE NEGATIVE (NEGATIVE); LEUKOCYTE ESTERASE,URINE NEGATIVE (NEGATIVE); NITRITE,URINE NEGATIVE (NEGATIVE); PROTEIN,URINE 100 mg/dL (NEGATIVE); URINE SPECIFIC GRAVITY 1.025
[2018-07-06] MEDS ORDERED: ONDANSETRON ODT 4 MG TAB (6 TAB/ER DISP) PO PRN (12:11)
[2018-07-06] MEDS ORDERED: HYDROCODONE/ACETAMINOPHEN 5-325 MG (6 TAB/ER DISP) PO PRN (12:11)
[2018-07-06 12:38] VITALS: BP 154/82
== END 2018-07-06 13:16 | disposition home or self-care (01) ==
LOC: ER 10:19
DX: N20.0 Calculus of kidney (principal); Z87.442 Personal history of urinary calculi; I10 Essential (primary) hypertension; E11.9 Type 2 diabetes mellitus without complications; E03.9 Hypothyroidism, unspecified; Z88.0 Allergy status to penicillin; Z91.013 Allergy to seafood; Z88.6 Allergy status to analgesic agent; Z88.8 Allergy status to other drugs, medicaments and biological substances
CPT/HCPCS: 96376; 99284; 96361; 96374; 96375; 87086; 81001; J3010; J1885

== ENCOUNTER 2019-08-02 00:08 | Emergency (ER) | payer SELFPAY ==
[2019-08-02] MEDS ORDERED: ASPIRIN 81 MG TABLET, CHEWABLE PO ONE (00:56)
--- NOTE | 2019-08-02 00:59 | ER Document Report ---
ED Medical Screen (RME) - General Chief Complaint: Chest Pain Stated Complaint: CHEST PAIN/BLOOD PRESSURE ISSUES Time Seen by Provider: 08/02/19 00:56 Primary Care Provider: ALFONSO HERNANDEZ MD [Primary Care Provider] - Follow up as needed Mode of Arrival: Ambulatory Information source: Patient Notes: 53-year-old female presented to ED for complaint of chest pain. She states she was working at [employer] when all of a sudden when she had chest pain with pain radiating down her left arm. She states this morning she woke up with low back pain and nausea. She states she has elevated blood pressure has not been on her blood pressure medicine for about 6 months. She states about 11:30 PM tonDescomplica she told her boss at [employer] that she was having chest pain so they checked her vital signs her blood pressure was 163/110 and her pulse was 115. Her blood pressure in the emergency room is 177/114 and her pulse is 95. Patient is alert oriented respirations regular nonlabored speaking in full sentences. I have greeted and performed a rapid initial assessment of this patient. A comprehensive ED assessment and evaluation of the patient, analysis of test results and completion of medical decision making process will be conducted by an additional ED providers. TRAVEL OUTSIDE OF THE [place] IN LAST 30 DAYS: No - Related Data Allergies/Adverse Reactions: acetaminophen [From Percocet] Allergy (Verified 07/06/18 10:20) oxycodone [From Percocet] Allergy (Verified 07/06/18 10:20) paroxetine HCl [From Paxil] Allergy (Verified 06/28/18 21:24) Penicillins Allergy (Verified 06/28/18 21:24) shellfish derived Allergy (Verified 06/28/18 22:48) Past Medical History - Social History Chew tobacco use (# tins/day): No Drug Abuse: None - Past Medical History Cardiac Medical History: Reports: Hx Hypertension Neurological Medical History: Reports: Hx Migraine Endocrine Medical History: Reports: Hx Diabetes Mellitus Type 2, Hx Hypothyroidism Renal/ Medical History: Denies: Hx Peritoneal Dialysis Psychiatric Medical History: Reports: Hx Attention Deficit Hyperactivity Disorder Traumatic Medical History: Reports: Hx Fractures Infectious Medical History: Denies: Hx MRSA Past Surgical History: Reports: Hx Appendectomy, Hx Hysterectomy, Hx Orthopedic Surgery - Right tibial sun - Immunizations Hx Diphtheria, Pertussis, Tetanus Vaccination: Yes Physical Exam - Vital signs Vitals: Temp Pulse Resp BP Pulse Ox 98.0 F 95 14 177/114 H 96 08/02/19 00:43 08/02/19 00:43 08/02/19 00:43 08/02/19 00:43 08/02/19 00:43 Course - Vital Signs Vital signs: Temp Pulse Resp BP Pulse Ox 98.0 F 95 14 177/114 H 96 08/02/19 00:43 08/02/19 00:43 08/02/19 00:43 08/02/19 00:43 08/02/19 00:43 Doctor's Discharge - Discharge Referrals: ALFONSO HERNANDEZ MD [Primary Care Provider] - Follow up as needed
[2019-08-02 01:32] VITALS: BP 151/97
--- NOTE | 2019-08-02 07:47 | EKG REPORT ---
SEVERITY:- BORDERLINE ECG - SINUS RHYTHM BORDERLINE T ABNORMALITIES, INFERIOR LEADS : Confirmed by: Vicente Vincent MD 02-Aug-2019 07:46:53
== END 2019-08-02 01:38 | disposition left against medical advice (07) ==
LOC: ER 00:08
DX: R07.9 Chest pain, unspecified (principal); M54.5 Low back pain; R11.0 Nausea; I10 Essential (primary) hypertension; E11.9 Type 2 diabetes mellitus without complications; Z88.8 Allergy status to other drugs, medicaments and biological substances; Z88.5 Allergy status to narcotic agent; Z88.0 Allergy status to penicillin; Z91.013 Allergy to seafood; Z53.20 Procedure and treatment not carried out because of patient's decision for unspecified reasons
CPT/HCPCS: 93005; 93010; 99281

== ENCOUNTER 2019-08-02 03:47 | Emergency (ER) | payer SELFPAY ==
[2019-08-02 04:39] LABS: ABSOLUTE BASOPHILS # (AUTO) 0.1 10^3/uL (0.0-0.2); ABSOLUTE EOSINOPHILS # (AUTO) 0.3 10^3/uL (0.0-0.6); ABSOLUTE LYMPHOCYTES (AUTO) 2.6 10^3/uL (0.5-4.7); ABSOLUTE MONOCYTES (AUTO) 0.6 10^3/uL (0.1-1.4); ABSOLUTE NEUT (AUTO) 5.3 10^3/uL (1.7-8.2); BASOPHILS % (AUTO) 1.1 % (0-2); EOSINOPHILS % (AUTO) 3.2 % (0-6); HEMATOCRIT 42.3 % (36.0-47.0); HEMOGLOBIN 14.3 g/dL (12.0-15.5); MEAN CORPUSCULAR HEMOGLOBIN 29.7 pg (27.0-33.4); MEAN CORPUSCULAR HGB CONC 33.9 g/dL (32.0-36.0); MEAN CORPUSCULAR VOLUME 88 fl (80-97); PLATELET COUNT 374 10^3/uL (150-450); RED BLOOD COUNT 4.83 10^6/uL (3.72-5.28); RED CELL DISTRIBUTION WIDTH 13.7 % (11.5-14.0); SEGMENTED NEUTROPHILS % (AUTO) 59.7 % (42-78); TOTAL CELLS COUNTED % (AUTO) 100 %; WHITE BLOOD COUNT 8.9 10^3/uL (4.0-10.5)
--- NOTE | 2019-08-02 04:39 | RADIOLOGY REPORT (SQ) ---
CLINICAL HISTORY: high bp COMPARISON: None. TECHNIQUE: XR CHEST 2 VIEWS 08/02/2019 12:00 AM CDT FINDINGS: Cardiac silhouette is normal in size. Lungs are clear without consolidation, atelectasis, mass or edema. There is no pleural effusion. There is no pneumothorax. There are no acute osseous findings. IMPRESSION: Clear lungs.
[2019-08-02 04:56] LABS: ALBUMIN 4.2 g/dL (3.5-5.0); ALKALINE PHOSPHATASE 115 U/L (38-126); ANION GAP 11 (5-19); ASPARTATE AMINO TRANSFERASE 25 U/L (14-36); BILIRUBIN,DIRECT 0.2 mg/dL (0.0-0.4); BILIRUBIN,TOTAL 0.2 mg/dL (0.2-1.3); BLOOD UREA NITROGEN 22 mg/dL (7-20); CALCIUM 9.6 mg/dL (8.4-10.2); CARBON DIOXIDE 24 mmol/L (22-30); CHLORIDE 105 mmol/L (98-107); CREATINE KINASE 55 U/L (30-135); GLUCOSE 138 mg/dL (75-110); POTASSIUM 4.2 mmol/L (3.6-5.0); TOTAL PROTEIN 7.6 g/dL (6.3-8.2)
[2019-08-02 05:08] LABS: CREATINE KINASE MB 1.21 ng/mL (<4.55)
[2019-08-02 05:11] LABS: TROPONIN I < 0.012 ng/mL
[2019-08-02] MEDS ORDERED: HYDROCHLOROTHIAZIDE 12.5 MG TABLET PO ONE (07:32)
[2019-08-02] MEDS ORDERED: LISINOPRIL 10 MG TABLET PO ONE (07:32)
--- NOTE | 2019-08-02 07:48 | EKG REPORT ---
SEVERITY:- BORDERLINE ECG - SINUS RHYTHM PROBABLE LEFT ATRIAL ABNORMALITY BORDERLINE T ABNORMALITIES, INFERIOR LEADS : Confirmed by: Vicente Vincent MD 02-Aug-2019 07:47:19
[2019-08-02 07:50] VITALS: BP 165/106
--- NOTE | 2019-08-02 12:24 | ER Document Report ---
Entered by BERLIN PAGAN SCRIBE 08/02/19 0725 Acting as scribe for:GREGG XIAO MD ED Blood Pressure Problem - General Chief Complaint: High Blood Pressure Stated Complaint: CHEST PAIN Time Seen by Provider: 08/02/19 07:11 Primary Care Provider: ALFONSO HERNANDEZ MD [Primary Care Provider] - Follow up as needed Mode of Arrival: Ambulatory Information source: Patient Notes: Patient is a 53-year-old female who presents to the emergency department today with complaints of elevated blood pressures. Patient states she works at [employer], she was feeling funny, so she took her blood pressure. Patient states her manager creative told her "that is too high, you are not working anymore, you are going to the emergency department". Patient states she has had associated nausea. Patient also mentions that she has had left-sided chest pain that radiated down her left arm. Patient states she has not taken any of the medication she was prescribed including lisinopril, Adderall, or phentermine for at least 6 months due to lack of insurance. Patient also mentions multiple other symptoms vaguely such as hand tingling, leg swelling, and a lack of sleep. 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 Patient's chest pain is reproducible. TRAVEL OUTSIDE OF THE [place] IN LAST 30 DAYS: No - Related Data Allergies/Adverse Reactions: acetaminophen [From Percocet] Allergy (Verified 07/06/18 10:20) oxycodone [From Percocet] Allergy (Verified 07/06/18 10:20) paroxetine HCl [From Paxil] Allergy (Verified 06/28/18 21:24) Penicillins Allergy (Verified 06/28/18 21:24) shellfish derived Allergy (Verified 06/28/18 22:48) Past Medical History - General Information source: Patient - Social History Smoking Status: Never Smoker Cigarette use (# per day): No Chew tobacco use (# tins/day): No Frequency of alcohol use: None Drug Abuse: None Lives with: Family Family History: Reviewed & Not Pertinent, Other Patient has suicidal ideation: No Patient has homicidal ideation: No - Past Medical History Cardiac Medical History: Reports: Hx Hypertension Neurological Medical History: Reports: Hx Migraine Endocrine Medical History: Reports: Hx Diabetes Mellitus Type 2, Hx Hypothyroidism Psychiatric Medical History: Reports: Hx Attention Deficit Hyperactivity Disorder Traumatic Medical History: Reports: Hx Fractures Past Surgical History: Reports: Hx Appendectomy, Hx Hysterectomy, Hx Orthopedic Surgery - Right tibial sun - Immunizations Hx Diphtheria, Pertussis, Tetanus Vaccination: Yes Hx Pneumococcal Vaccination: 08/20/13 Review of Systems - Review of Systems Constitutional: No symptoms reported EENT: No symptoms reported Cardiovascular: See HPI, Chest pain Respiratory: No symptoms reported Gastrointestinal: See HPI, Nausea Genitourinary: No symptoms reported Female Genitourinary: No symptoms reported Musculoskeletal: See HPI, Leg swelling Skin: No symptoms reported Hematologic/Lymphatic: No symptoms reported Neurological/Psychological: See HPI, Tingling -: Yes All other systems reviewed and negative Physical Exam - Vital signs Vitals: Temp Pulse Resp BP Pulse Ox 98.1 F 109 H 12 192/110 H 99 08/02/19 03:53 08/02/19 03:53 08/02/19 03:53 08/02/19 03:53 08/02/19 03:53 - Notes Notes: Physical Exam: General: Alert, appears well. HEENT: Normocephalic. Atraumatic. PERRL. Extraocular movements intact. Oropha rynx clear. Neck: Supple. Non-tender. Respiratory: No respiratory distress. Clear and equal breath sounds bilaterally. Left anterior chest wall tenderness to palpation, reproducible chest pain. Cardiovascular: Regular rate and rhythm. Abdominal: Normal Inspection. Non-tender. No distension. Normal Bowel Sounds. Back: No gross abnormalities. Extremities: Moves all four extremities. Upper extremities: Normal inspection. Normal ROM. Lower extremities: Normal inspection. No edema. Normal ROM. Neurological: Normal cognition. AAOx4. Normal speech. Psychological: Normal affect. Normal Mood. Skin: Warm. Dry. Normal color. Course - Vital Signs Vital signs: Temp Pulse Resp BP Pulse Ox 97.7 F 109 H 17 165/106 H 99 08/02/19 07:46 08/02/19 03:53 08/02/19 07:45 08/02/19 07:46 08/02/19 07:45 - Laboratory Result Diagrams: 08/02/19 04:06 08/02/19 04:06 Laboratory results interpreted by me: 08/02/19 04:06 BUN 22 H Glucose 138 H Discharge - Discharge Clinical Impression: Chest wall pain Hypertension Qualifiers: Hypertension type: essential hypertension Qualified Code(s): I10 - Essential (primary) hypertension Condition: Stable Disposition: HOME, SELF-CARE Additional Instructions: Chest Wall Pain Your chest pain has been diagnosed as coming from the chest wall. This is often caused by straining the muscles or joints in the chest during physical activity, direct trauma, coughing, or vigorous vomiting. Persons with arthritis are especially prone to this type of pain, due to inflammation of the cartilage joints near the breast bone. Occasionally, no cause can be found. Rest from strenuous physical activity. This kind of chest pain is usually made worse by movement of the chest. Depending on the symptoms, we may prescribe medicine for pain, muscle relaxation, and antiinflammatory effects. If the pain is new, and seems to be due to muscle strain, cold packs can help. Otherwise, apply gentle warmth to the painful area for 15 minutes every hour or two. You should contact the doctor immediately if things change. Further evaluation is needed if you develop a fever or cough, if the nature of the pain changes, or if you become short of breath. High Blood Pressure When your blood pressure was taken today it was elevated. Sometimes, stress or illness causes a temporary elevation of your blood pressure. We suggest that you get your blood pressure measured three more times during the next few days to see if this is more than a temporary abnormality. If your blood pressure is greater than 150/90 on each occasion, you must have treatment. Some simple things you can do to help are: If you have blood pressure medicine but aren't using it regularly, start taking it again. Get some aerobic exercise for at least 20 minutes on a daily basis. (See your doctor before beginning a new exercise program.) Eat a low-fat diet. Lose excess weight. Avoid salty foods and avoid adding salt to any of the foods you eat. Avoid diet pills, decongestants, "energizing" herbs, and other medicines that elevate blood pressure. If left untreated, hypertension greatly enhances your risk for developing heart disease and strokes. Please don't ignore this problem. Take the medication as prescribed for your blood pressure. It includes a fluid pill that should help some of the fluid retention and swelling he described. Take Tylenol and ibuprofen for your chest wall pain if needed. Check your blood pressure on a daily basis to determine if you will need medication adjustments. Follow-up with a local medical doctor to manage your high blood pressure. RETURN TO THE EMERGENCY ROOM IF ANY NEW OR WORSENING SYMPTOMS. Prescriptions: Lisinopril/Hydrochlorothiazide [Lisinopril-Hctz 20-12.5 mg Tab] 1 each PO DAILY #30 tablet Forms: Return to Work Referrals: ALFONSO HERNANDEZ MD [Primary Care Provider] - Follow up as needed Scribe Attestation: 08/02/19 07:28 I personally performed the services described in the documentation, reviewed and edited the documentation which was dictated to the scribe in my presence, and it accurately records my words and actions. I personally performed the services described in the documentation, reviewed and edited the documentation which was dictated to the scribe in my presence, and it accurately records my words and actions.
== END 2019-08-02 07:50 | disposition home or self-care (01) ==
LOC: ER 03:47
DX: I10 Essential (primary) hypertension (principal); R07.89 Other chest pain; R11.0 Nausea; R20.2 Paresthesia of skin; M79.89 Other specified soft tissue disorders; E11.9 Type 2 diabetes mellitus without complications; Z72.820 Sleep deprivation; Z88.8 Allergy status to other drugs, medicaments and biological substances; Z88.5 Allergy status to narcotic agent; Z88.0 Allergy status to penicillin; Z91.013 Allergy to seafood
CPT/HCPCS: 36415; 71046; 82550; 82553; 84484; 87070; 93005; 93010; 99284

== ENCOUNTER 2019-09-11 15:48 | Emergency (ER) | payer SELFPAY ==
[2019-09-11] MEDS ORDERED: NORMAL SALINE 1000 ML 1,000 ML IV ONE (16:23)
[2019-09-11] MEDS ORDERED: ONDANSETRON HCL INJ/PF 4 MG/2 ML SDV IV ONE (16:24)
--- NOTE | 2019-09-11 16:26 | ER Document Report ---
ED General - General Chief Complaint: Low Blood Pressure Stated Complaint: BREATHING DIFFICULTY Time Seen by Provider: 09/11/19 16:22 Primary Care Provider: ALFONSO HERNANDEZ MD [Primary Care Provider] - Follow up as needed TRAVEL OUTSIDE OF THE [place] 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 Exacerbated by: Denies Relieved by: Denies - Related Data Allergies/Adverse Reactions: acetaminophen [From Percocet] Allergy (Verified 07/06/18 10:20) oxycodone [From Percocet] Allergy (Verified 07/06/18 10:20) paroxetine HCl [From Paxil] Allergy (Verified 06/28/18 21:24) Penicillins Allergy (Verified 06/28/18 21:24) shellfish derived Allergy (Verified 06/28/18 22:48) Past Medical History - Social History Smoking Status: Unknown if Ever Smoked Family History: Reviewed & Not Pertinent, Other Patient has suicidal ideation: No Patient has homicidal ideation: No - Past Medical History Cardiac Medical History: Reports: Hx Hypertension Neurological Medical History: Reports: Hx Migraine Endocrine Medical History: Reports: Hx Diabetes Mellitus Type 2, Hx Hypothyroidism Renal/ Medical History: Denies: Hx Peritoneal Dialysis Psychiatric Medical History: Reports: Hx Attention Deficit Hyperactivity Disorder Traumatic Medical History: Reports: Hx Fractures Infectious Medical History: Denies: Hx MRSA Past Surgical History: Reports: Hx Appendectomy, Hx Hysterectomy, Hx Orthopedic Surgery - Right tibial sun - Immunizations Hx Diphtheria, Pertussis, Tetanus Vaccination: Yes Hx Pneumococcal Vaccination: 08/20/13 Review of Systems - Review of Systems Constitutional: No symptoms reported EENT: No symptoms reported Cardiovascular: No symptoms reported Respiratory: No symptoms reported Gastrointestinal: No symptoms reported Genitourinary: No symptoms reported Female Genitourinary: No symptoms reported Musculoskeletal: No symptoms reported Skin: No symptoms reported Hematologic/Lymphatic: No symptoms reported Neurological/Psychological: No symptoms reported Physical Exam - Vital signs Vitals: Resp BP Pulse Ox 17 122/79 96 09/11/19 16:17 09/11/19 16:17 09/11/19 16:17 Interpretation: Normal - General General appearance: Appears well, Alert - HEENT Head: Normocephalic, Atraumatic Eyes: Normal Pupils: PERRL - Respiratory Respiratory status: No respiratory distress Chest status: Nontender Breath sounds: Normal Chest palpation: Normal - Cardiovascular Rhythm: Regular Heart sounds: Normal auscultation Murmur: No - Abdominal Inspection: Normal Distension: No distension Bowel sounds: Normal Tenderness: Nontender Organomegaly: No organomegaly - Back Back: Normal, Nontender - Extremities General upper extremity: Normal inspection, Nontender, Normal color, Normal ROM, Normal temperature General lower extremity: Normal inspection, Nontender, Normal color, Normal ROM, Normal temperature, Normal weight bearing. 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 Thyroid has been off previously and due for 24 hour urine collection. - Vital Signs Vital signs: Temp Pulse Resp BP Pulse Ox 15 114/82 95 09/11/19 18:01 09/11/19 18:01 09/11/19 18:01 - Laboratory Result Diagrams: 09/11/19 16:52 09/11/19 16:52 Laboratory results interpreted by me: 09/11/19 09/11/19 09/11/19 16:52 16:52 18:20 WBC 12.3 H Absolute Neuts (auto) 9.3 H Chloride 108 H BUN 23 H Glucose 115 H Ur Leukocyte Esterase SMALL H - Diagnostic Test Radiology reviewed: Image reviewed, Reports reviewed - EKG Interpretation by Me EKG shows normal: Sinus rhythm - NSR 85 BPM Poor R wave progression no st elevation or depression my interpretation. Discharge - Discharge Clinical Impression: Weakness Condition: Good Disposition: HOME, SELF-CARE Instructions: Weakness ([facility]) Additional Instructions: Rest, no work for 2 days. Please return here for any problems or concerns. 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 Forms: Return to Work Referrals: ALFONSO HERNANDEZ MD [Primary Care Provider] - Follow up as needed
--- NOTE | 2019-09-11 16:51 | RADIOLOGY REPORT (SQ) ---
EXAM DESCRIPTION: CHEST SINGLE VIEW COMPLETED DATE/TIME: 09/11/2019 4:40 pm REASON FOR STUDY: syncope COMPARISON: Chest films 08/02/2019, 06/28/2018 CT angio chest 06/28/2018 EXAM PARAMETERS: NUMBER OF VIEWS: One view. TECHNIQUE: Single frontal radiographic view of the chest acquired. RADIATION DOSE: NA LIMITATIONS: None. FINDINGS: LUNGS AND PLEURA: No opacities, masses or pneumothorax. No pleural effusion. MEDIASTINUM AND HILAR STRUCTURES: No masses. Contour normal. HEART AND VASCULAR STRUCTURES: Heart normal in size. Normal vasculature. BONES: No acute findings. HARDWARE: None in the chest. OTHER: No other significant finding. IMPRESSION: NO ACUTE RADIOGRAPHIC FINDING IN THE CHEST. TECHNICAL DOCUMENTATION: JOB ID: [id number] [employer])- All Rights Reserved Reading location - IP/workstation name: [email or web address]
[2019-09-11 17:03] LABS: ABSOLUTE BASOPHILS # (AUTO) 0.1 10^3/uL (0.0-0.2); ABSOLUTE EOSINOPHILS # (AUTO) 0.3 10^3/uL (0.0-0.6); ABSOLUTE LYMPHOCYTES (AUTO) 1.9 10^3/uL (0.5-4.7); ABSOLUTE MONOCYTES (AUTO) 0.7 10^3/uL (0.1-1.4); ABSOLUTE NEUT (AUTO) 9.3 10^3/uL (1.7-8.2); BASOPHILS % (AUTO) 0.8 % (0-2); EOSINOPHILS % (AUTO) 2.6 % (0-6); HEMATOCRIT 42.4 % (36.0-47.0); HEMOGLOBIN 14.2 g/dL (12.0-15.5); LYMPHOCYTES % (AUTO) 15.7 % (13-45); MEAN CORPUSCULAR HEMOGLOBIN 29.2 pg (27.0-33.4); MEAN CORPUSCULAR HGB CONC 33.4 g/dL (32.0-36.0); MEAN CORPUSCULAR VOLUME 87 fl (80-97); MONOCYTES % (AUTO) 5.7 % (3-13); PLATELET COUNT 349 10^3/uL (150-450); RED BLOOD COUNT 4.85 10^6/uL (3.72-5.28); RED CELL DISTRIBUTION WIDTH 13.3 % (11.5-14.0); SEGMENTED NEUTROPHILS % (AUTO) 75.2 % (42-78); TOTAL CELLS COUNTED % (AUTO) 100 %; WHITE BLOOD COUNT 12.3 10^3/uL (4.0-10.5)
[2019-09-11 17:28] LABS: ALBUMIN 3.5 g/dL (3.5-5.0); ALKALINE PHOSPHATASE 81 U/L (38-126); ANION GAP 10 (5-19); ASPARTATE AMINO TRANSFERASE 19 U/L (14-36); BILIRUBIN,DIRECT 0.1 mg/dL (0.0-0.4); BILIRUBIN,TOTAL 0.3 mg/dL (0.2-1.3); BLOOD UREA NITROGEN 23 mg/dL (7-20); CALCIUM 9.2 mg/dL (8.4-10.2); CARBON DIOXIDE 22 mmol/L (22-30); CHLORIDE 108 mmol/L (98-107); GLUCOSE 115 mg/dL (75-110); POTASSIUM 4.3 mmol/L (3.6-5.0); TOTAL PROTEIN 6.4 g/dL (6.3-8.2)
[2019-09-11 18:57] LABS: APPEARANCE,URINE CLEAR; BILIRUBIN,URINE NEGATIVE (NEGATIVE); COLOR,URINE YELLOW; GLUCOSE, URINE NEGATIVE (NEGATIVE); KETONES,URINE NEGATIVE (NEGATIVE); LEUKOCYTE ESTERASE,URINE SMALL (NEGATIVE); NITRITE,URINE NEGATIVE (NEGATIVE); PROTEIN,URINE NEGATIVE (NEGATIVE); URINE SPECIFIC GRAVITY 1.018; UROBILINOGEN,URINE NEGATIVE mg/dL (<2.0)
[2019-09-11 19:15] VITALS: BP 115/83
--- NOTE | 2019-09-11 22:51 | EKG REPORT ---
SEVERITY:- NORMAL ECG - SINUS RHYTHM : Confirmed by: Vicente Vincent MD 11-Sep-2019 22:50:51
== END 2019-09-11 19:32 | disposition home or self-care (01) ==
LOC: ER 15:48
DX: R53.1 Weakness (principal); R42 Dizziness and giddiness; I10 Essential (primary) hypertension; E11.9 Type 2 diabetes mellitus without complications; Z88.8 Allergy status to other drugs, medicaments and biological substances; Z88.6 Allergy status to analgesic agent; Z88.5 Allergy status to narcotic agent; Z88.0 Allergy status to penicillin; Z91.013 Allergy to seafood
CPT/HCPCS: 93005; 36415; 84443; 85025; 80053; 81001; 71045; 93010; J2405; J7030; 96374; 99285